=== PATIENT | male | born 1945 | race Caucasian/White ===

== ENCOUNTER 2021-08-28 14:14 | Inpatient (IN) | payer MEDICARE, OTHER ==
[~2021-08-28] VITALS: Ht 174 cm; Wt 72.2 kg
[2021-08-28] MEDS ORDERED: FUROSEMIDE 40MG/4ML VIAL (J1940) IV ONE (15:00)
[2021-08-28] MEDS ORDERED: NITROGLYCERIN 2% OINT 1 GM *U/D* PKT TOP ONE (15:00)
[2021-08-28 15:28] LABS: BASO # 0.1 10^3/uL (0.0-0.2); BASO % 0.8 % (0.0-1.0); EOS # 0.1 10^3/uL (0.0-0.5); EOS % 1.8 % (0.0-3.0); HEMATOCRIT 52.3 % (42.0-52.0); HEMOGLOBIN 15.5 g/dl (13.5-17.5); LYMPH # 1.5 10^3/uL (1.5-5.0); LYMPH % 20.4 % (24.0-44.0); MEAN CORPUSCULAR HEMOGLOBIN 27.7 pg (27.0-33.0); MEAN CORPUSCULAR HGB CONC 29.6 g/dl (32.0-36.5); MEAN CORPUSCULAR VOLUME 93.6 fl (80.0-96.0); MONO # 0.9 10^3/uL (0.0-0.8); MONO % 12.2 % (2.0-8.0); NEUTROPHILS # 4.7 10^3/uL (1.5-8.5); NEUTROPHILS % 63.7 % (36.0-66.0); PLATELET COUNT, AUTOMATED 246 10^3/uL (150-450); RED BLOOD COUNT 5.59 10^6/uL (4.30-6.10); WHITE BLOOD COUNT 7.4 10^3/uL (4.0-10.0)
--- NOTE | 2021-08-28 15:29 | REP ---
INDICATION: DYSPNEA/COUGH. COMPARISON: 01/30/2012. TECHNIQUE: Single portable AP view of the chest was performed. FINDINGS: There are chronic appearing interstitial fibrotic changes bilaterally. There is no definite acute infiltrate. Heart is upper limits of normal in size. The mediastinal silhouette is unchanged. IMPRESSION: Chronic changes with no definite acute infiltrate. <Electronically signed by Josh Bragg > 08/28/21 [id number]
[2021-08-28 15:40] LABS: INR 1.13
[2021-08-28 16:23] LABS: ALBUMIN 2.7 GM/DL (3.2-5.2); ALT/SGPT 23 U/L (12-78); BILIRUBIN,DIRECT 0.3 MG/DL (0.0-0.2); BILIRUBIN,TOTAL 0.6 MG/DL (0.2-1.0); BLOOD UREA NITROGEN 24 MG/DL (7-18); CALCIUM LEVEL 8.6 MG/DL (8.8-10.2); CARBON DIOXIDE LEVEL 33 MEQ/L (21-32); CHLORIDE LEVEL 103 MEQ/L (98-107); CK-MB VALUE MASS 4.4 NG/ML (<3.6); CPK CREATINE PHOSPHOKINASE 75 U/L (39-308); GLOMERULAR FILTRATION RATE > 60.0 (>42); GLUCOSE, FASTING 97 MG/DL (70-100); MB/CK RELATIVE INDEX 5.87 (< OR =4); NT-PRO BNP 3042 PG/ML (<450); POTASSIUM SERUM 4.5 MEQ/L (3.5-5.1); SODIUM LEVEL 140 MEQ/L (136-145); TOTAL PROTEIN 8.6 GM/DL (6.4-8.2); TROPONIN I 0.03 NG/ML (< 0.10)
--- NOTE | 2021-08-28 17:49 | HPEPDOC ---
[facility] Medical History & Physical Date of Admission Aug 28, 2021 Date of Service: Aug 28, 2021 History and Physical CHIEF COMPLAINT: " I was feeling short of breath" HISTORY OF PRESENT ILLNESS: 76-year-old male with a past medical history of exposure to agent orange, otherwise no reported history presented to emergency room department with complaints of shortness of breath. He drove his scooter himself to the emergen cy room. He reports for the last 5 years it has been getting short of breath but did not see medical attention due to taking care of his who reportedly has multiple myeloma. He attributed it to exposure of agent orange. Over the last 2 weeks he is feeling more short of breath, and today it had progressed to the point where he went to seek medical attention. He gets short of breath walking from one end of his house to the other, which was not present 2 weeks ago. He denied paroxysmal nocturnal dyspnea. He reports he has been sleeping in a recliner and is unsure if laying flat will exacerbate his symptoms. He uses no pillows. At this junction, he denies headaches, blurry vision, chest pain, abdominal pain, focal weakness, problems with urination or bowel movements. In the emergency room department he received Lasix and was placed on oxygen and reported improvement in his breathing. PAST MEDICAL HISTORY: No reported medical history PAST SURGICAL HISTORY: No prior to surgical history SOCIAL HISTORY: This is at the . Smokes approximately a pack per day. Denied drinking and use of recreational drug use. FAMILY HISTORY: Father had congestive heart failure ALLERGIES: Please see below. REVIEW OF SYSTEMS: 10 point review of system was negative except for what is noted in the HPI HOME MEDICATIONS: Please see below. PHYSICAL EXAMINATION: VITAL SIGNS: Please see below General: Lying in bed, no acute distress Head/Neck/Throat: Trachea midline, mucous membranes moist Eyes: Sclera anicteric, no erythema or discharge appreciated bilaterally Thorax: Normal respiratory effort on room air, lungs clear to auscultation bilaterally, no wheezes/rales/rhonchi Cardiovascular: Tachycardia, regular rhythm, normal S1, S2. Anisocoria - bilateral lower extremity edema, sacral edema, fluid wheeze appreciated, elevated JVD Abdomen: Bowel sounds present, soft/nontender/nondistended Genitourinary: No CVA tenderness, no Knott in place Musculoskeletal: Moving all extremities, no edema Skin: Warm, dry Neurologic: AAOx3, speech fluent and goal-directed, no focal deficits, grossly intact LABORATORY DATA: See below. IMAGING: Chest x-ray There are chronic appearing interstitial fibrotic changes bilaterally. There is no definite acute infiltrate. Heart is upper limits of normal in size. The mediastinal silhouette is unchanged. IMPRESSION: Chronic changes with no definite acute infiltrate. MICROBIOLOGY: Please see below. ASSESSMENT/PLAN: #Hypoxic respiratory failure -Suspect congestive heart failure (probable tachyarrhythmia cardiomyopathy); and with history of sedentary lifestyle, tachycardia and hypoxia would rule out PE. -Continue with Lasix, daily weights, I/O -Follow-up on CTA #Respiratory acidosis with compensation -Likely chronic, suspect AISHA/OHS. Mentating well, and lungs cta. -Monitor respiratory status. #A.flutter -EKG reviewed with Dr. Harrison. Recommends 0.5mcg of digoxin, and Lovenox at 75mg BID. #DVT prophylaxis -Offered by Lovenox Vital Signs Vital Signs Date Time Temp Pulse Resp B/P (MAP) Pulse Ox O2 Delivery O2 Flow Rate FiO2 08/28/21 15:28 177/103 08/28/21 14:37 124 22 Nasal Cannula 2.0 08/28/21 14:15 98.3 82 Laboratory Data Labs 24H Laboratory Tests 2 08/28/21 15:08: Immature Granulocyte % (Auto) 1.1, Neutrophils (%) (Auto) 63.7, Lymphocytes (%) (Auto) 20.4L, Monocytes (%) (Auto) 12.2H, Eosinophils (%) (Auto) 1.8, Basophils (%) (Auto) 0.8, Neutrophils # (Auto) 4.7, Lymphocytes # (Auto) 1.5, Monocytes # (Auto) 0.9H, Eosinophils # (Auto) 0.1, Basophils # (Auto) 0.1, Nucleated Red Blood Cells % (auto) 0.0, Prothrombin Time 15.0H, Prothromb Time International Ratio 1.13, Anion Gap 4L, Glomerular Filtration Rate > 60.0, Lactic Acid Level 1.8, Calcium Level 8.6L, Total Bilirubin 0.6, Direct Bilirubin 0.3H, Aspartate Amino Transf (AST/SGOT) 32, Alanine Aminotransferase (ALT/SGPT) 23, Alkaline Phosphatase 143H, Total Creatine Kinase 75, Creatine Kinase MB 4.4H, Creatine Kinase MB Relative Index 5.87H, Troponin I 0.03, PM-Owv-G-Type Natriuretic Peptide 3042H, Total Protein 8.6H, Albumin 2.7L, Albumin/Globulin Ratio 0.5, Thyroid Stimulating Hormone (TSH) 3.240 CBC/BMP Laboratory Tests 08/28/21 15:08 Microbiology Microbiology 08/28/21 Blood Culture, Received Pending 08/28/21 Respiratory Virus Panel (PCR) ([facility]) - Final, Complete 08/28/21 Blood Culture, Received Pending Home Medications Scheduled Ascorbic Acid (Vitamin C) 500 Mg Capsule, 500 MG PO DAILY Multivitamins (Thera M Plus Tablet) 1 Each Tablet, 1 TAB PO DAILY Zinc Sulfate (Zinc Sulfate) 220 Mg Capsule, 220 MG PO DAILY Allergies Coded Allergies: No Known Allergies (Unverified , 08/28/21) A-FIB/CHADSVASC A-FIB History Current/History of A-Fib/PAF?: Yes Current PO Anticoag Therapy: Yes CLAIRE VARELA M.D. Aug 28, 2021 17:49
[2021-08-28] MEDS ORDERED: VITA500C24 PO (17:50)
[2021-08-28] MEDS ORDERED: VITMTA PO (17:50)
[2021-08-28] MEDS ORDERED: ZINC220CA PO (17:50)
[2021-08-28] MEDS ORDERED: ISOVUE-370 76% 100ML VIAL As Ordered ONE (17:53)
[2021-08-28] MEDS ORDERED: HOME MED LIST COMPLETE! XX SCH (17:55)
[2021-08-28 18:41] LABS: ABG BASE EXCESS 3.8 (-2.0-2.0); ABG HCO3 32.7 MEQ/L (22.0-26.0); ABG STANDARD HCO3 27.8 MEQ/L (22.0-26.0); ABG TOTAL CO2 34.8 MEQ/L (23.0-31.0); ABG pH (ARTERIAL) 7.297 UNITS (7.350-7.450)
[2021-08-28 18:42] LABS: ABG PARTIAL PRESSURE CO2 68.4 mmHg (35.0-45.0)
[2021-08-28] MEDS ORDERED: DIGOXIN 0.25 MG TAB PO ONE (19:00)
--- NOTE | 2021-08-28 20:18 | REPVR ---
PROCEDURE INFORMATION: Exam: CTA Chest With Contrast Exam date and time: 08/28/2021 7:09 PM Age: 76 years old Clinical indication: Shortness of breath; Additional info: R/O pe TECHNIQUE: Imaging protocol: Computed tomographic angiography of the chest with contrast. 3D rendering (Not supervised by radiologist): MIP and/or 3D reconstructed images were created by the technologist. Radiation optimization: All CT scans at this facility use at least one of these dose optimization techniques: automated exposure control; mA and/or kV adjustment per patient size (includes targeted exams where dose is matched to clinical indication); or iterative reconstruction. Contrast material: ISOVUE 370; Contrast volume: 75 ml; Contrast route: INTRAVENOUS (IV); COMPARISON: CR PORTABLE CHEST X-RAY 08/28/2021 3:10 PM FINDINGS: Pulmonary arteries: There are no pulmonary emboli. Aorta: There is no aortic dissection or aneurysm. Lungs: Moderate to severe paraseptal and centrilobular emphysematous changes. Subpleural interstitial infiltrates both lung bases with small cystic changes suggesting interstitial lung disease. Pleural spaces: Unremarkable. No pneumothorax. No pleural effusion. Heart: There is mild atherosclerotic calcification of the coronary arteries. Lymph nodes: Multiple mediastinal lymph nodes likely postinflammatory. Adrenal glands: There is bilateral adrenal hyperplasia. Intraperitoneal space: There is a small amount of free intraperitoneal fluid present. Bones/joints: Degenerative changes both sternoclavicular and 1st rib manubrial joints. The spine demonstrates mild degenerative changes. Soft tissues: Unremarkable. Other findings: No segmental or lobar infiltrates. IMPRESSION: 1. Moderate to severe paraseptal and centrilobular emphysematous changes. 2. Subpleural interstitial infiltrates both lung bases with small cystic changes suggesting lower lobe interstitial lung disease. 3. There is no aortic dissection or aneurysm. 4. Multiple mediastinal lymph nodes likely postinflammatory. 5. There are no pulmonary emboli. 6. There is a small amount of free intraperitoneal fluid present. 7. There is bilateral adrenal hyperplasia. Electronically signed by: Kuldeep Han On 08/28/2021 20:17:37 PM
[2021-08-28 20:38] LABS: CHOLESTEROL RISK RATIO 2.866 (<5)
[2021-08-28 20:42] LABS: HEMOGLOBIN A1c 7.3 %
[2021-08-28 21:00] VITALS: BP 149/83
[2021-08-28] MEDS ORDERED: ENOXAPARIN 40MG/0.4ML SYRINGE (J1650 PER 10MG) SC SCH (21:00)
[2021-08-28] MEDS: ENOXAPARIN 80MG/0.8ML SYRINGE (J1650 PER 10MG) SC SCH (22:30)
[2021-08-29] VITALS (16 sets, daily range): BP systolic 91–137; BP diastolic 51–83
[2021-08-29] MEDS ORDERED: FUROSEMIDE 40MG/4ML VIAL (J1940) IV SCH
--- NOTE | 2021-08-29 01:10 | ECGEPIP ---
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
[2021-08-29 03:34] LABS: BLOOD UREA NITROGEN 20 MG/DL (7-18); CALCIUM LEVEL 8.4 MG/DL (8.8-10.2); CARBON DIOXIDE LEVEL 38 MEQ/L (21-32); CHLORIDE LEVEL 102 MEQ/L (98-107); CK-MB VALUE MASS 3.2 NG/ML (<3.6); CPK CREATINE PHOSPHOKINASE 54 U/L (39-308); CREATININE FOR GFR 1.13 MG/DL (0.70-1.30); GLOMERULAR FILTRATION RATE > 60.0 (>42); GLUCOSE, FASTING 93 MG/DL (70-100); MB/CK RELATIVE INDEX 5.93 (< OR =4); POTASSIUM SERUM 4.2 MEQ/L (3.5-5.1); SODIUM LEVEL 141 MEQ/L (136-145); TROPONIN I 0.05 NG/ML (< 0.10)
[2021-08-29 05:51] LABS: ABG BASE EXCESS 5.2 (-2.0-2.0); ABG HCO3 34.3 MEQ/L (22.0-26.0); ABG O2 SATURATION 94.8 % (95.0-99.0); ABG PARTIAL PRESSURE O2 80.3 mmHg (75.0-100.0); ABG STANDARD HCO3 29.1 MEQ/L (22.0-26.0); ABG TOTAL CO2 36.5 MEQ/L (23.0-31.0); ABG pH (ARTERIAL) 7.301 UNITS (7.350-7.450)
[2021-08-29 05:53] LABS: ABG PARTIAL PRESSURE CO2 71.1 mmHg (35.0-45.0)
[2021-08-29 06:03] LABS: HEMATOCRIT 47.2 % (42.0-52.0); HEMOGLOBIN 14.1 g/dl (13.5-17.5); MEAN CORPUSCULAR HEMOGLOBIN 27.8 pg (27.0-33.0); MEAN CORPUSCULAR HGB CONC 29.9 g/dl (32.0-36.5); MEAN CORPUSCULAR VOLUME 93.1 fl (80.0-96.0); PLATELET COUNT, AUTOMATED 235 10^3/uL (150-450); RED BLOOD COUNT 5.07 10^6/uL (4.30-6.10); WHITE BLOOD COUNT 8.1 10^3/uL (4.0-10.0)
[2021-08-29 06:16] LABS: BLOOD UREA NITROGEN 19 MG/DL (7-18); CALCIUM LEVEL 8.4 MG/DL (8.8-10.2); CARBON DIOXIDE LEVEL 37 MEQ/L (21-32); CHLORIDE LEVEL 103 MEQ/L (98-107); CREATININE FOR GFR 1.12 MG/DL (0.70-1.30); GLOMERULAR FILTRATION RATE > 60.0 (>42); GLUCOSE, FASTING 80 MG/DL (70-100); POTASSIUM SERUM 4.1 MEQ/L (3.5-5.1); SODIUM LEVEL 142 MEQ/L (136-145)
[2021-08-29] MEDS ORDERED: diphenhydrAMINE 50MG/ML VIAL (J1200) IV ONE (06:40)
[2021-08-29] MEDS ORDERED: ACETAMINOPHEN 650 MG SUPP PR PRN (06:40)
[2021-08-29] MEDS: DIGOXIN 0.25 MG TAB PO SCH (07:58)
[2021-08-29] MEDS: ENOXAPARIN 80MG/0.8ML SYRINGE (J1650 PER 10MG) SC SCH ×2 (07:58→20:14)
[2021-08-29] MEDS: methylPREDNISolone 40MG 1ML VIAL IV SCH ×3 (07:58→20:14)
[2021-08-29] MEDS: PIPERACILLIN/TAZOBACTAM SOD 4.5 GM in D5W MINI-BAG PLUS 50 ML IV SCH ×3 (07:59→20:14)
[2021-08-29] MEDS ORDERED: LEVALBUTEROL HFA 45MCG/ACT 15 GM INHALER INH SCH (08:00)
[2021-08-29] MEDS ORDERED: IPRATROPIUM HFA INHALER 12.9 GRAMS (ATROVENT HFA) INH SCH (08:00)
[2021-08-29] MEDS ORDERED: LEVALBUTEROL 1.25 MG/0.5 ML CONCENTRATE NEB INH SCH (08:00)
[2021-08-29 08:17] LABS: TROPONIN I 0.05 NG/ML (< 0.10)
[2021-08-29] MEDS: VANCOMYCIN HCL 1,000 MG, VIAL MATE ADAPTER 1 EACH in NS 250 ML IV SCH ×2 (09:34→17:10)
[2021-08-29] MEDS ORDERED: VANCOMYCIN HCL 1,000 MG, VIAL MATE ADAPTER 1 EACH in NS 250 ML IV ONE (10:00)
[2021-08-29 10:39] LABS: ABG O2 SATURATION 86.1 % (95.0-99.0)
[2021-08-29 10:42] LABS: ABG BASE EXCESS 5.6 (-2.0-2.0); ABG PARTIAL PRESSURE O2 54.8 mmHg (75.0-100.0); ABG STANDARD HCO3 29.2 MEQ/L (22.0-26.0); ABG TOTAL CO2 37.3 MEQ/L (23.0-31.0)
[2021-08-29 10:44] LABS: ABG PARTIAL PRESSURE CO2 74.4 mmHg (35.0-45.0)
[2021-08-29] MEDS ORDERED: ALBUTEROL SULFATE 2.5 MG/0.5 ML INH NEB SOLN NEB PRN (11:00)
--- NOTE | 2021-08-29 14:46 | CR.PDOC ---
General Date of Consultation: Aug 29, 2021 Referring Provider: Halley Nunn MD Attending Physician: Halley Nunn MD Consultation REASON FOR CONSULTATION/CHIEF COMPLAINT: shortness of breath. HISTORY OF PRESENT ILLNESS: This is a 76 yo gentleman with history of at least 40 pack year smoking history, possible agent orange exposure presented to the ER with complaint of shortness of breath. He states that his shortness of breath has been there for the last 5 years. He has not seen a doctor for many years. However, his symptoms progressively got worsened in the last 2 weeks. Associated symptoms include palpitation and LE swelling. Upon admission to the hospital, he was found to have Aflutter with elevated proBNP. He was give diuretic therapy with digoxin and Lovenox theraputic dose. ABG showed mild derangement of partially compensated respiratory acidosis. CT chest showed no evidence of PE but extensive centrilobular emphysema predominately in the apex. He was put on BiPAP last night but didn't tolerate. Now he's on Vapotherm. Pulmonary was consulted for further recommendation. ALLERGIES: Please see below. HOME MEDICATIONS: Please see below. PAST MEDICAL HISTORY: -Chronic tobacco abuse. PAST SURGICAL HISTORY: No prior to surgical history SOCIAL HISTORY: Lives with . Smokes approximately a pack per day for total of 40 years. Denied drinking and use of recreational drug use. FAMILY HISTORY: Father had congestive heart failure REVIEW OF SYSTEMS: CONSTITUTIONAL: Denies of fever, chills, weight change, appetite change, night sweats, weight loss. HEENT: Denies of cough or sinusitis. CARDIOVASCULAR: Admits to palpitation and orthopnea, Denies chest pain RESPIRATORY: Admits to shortness of breath and chronic productive cough, denies hemoptysis or wheezing. GENITOURINARY: Denies dysuria. MUSCULOSKELETAL: Denies joint swelling or redness. GASTROINTESTINAL: Denies abdominal pain, nausea, vomiting, diarrhea. SKIN: Denies rash. NEUROLOGICAL: Denies slurred speech, focal weakness. PSYCHIATRIC: Denies depression ENDOCRINE: Denies weigh t changes. HEMATOLOGIC/LYMPHATIC: Denies bleeding. ALLERGIC/IMMUNOLOGIC: Denies allergy. PHYSICAL EXAMINATION: VITAL SIGNS: Please see below. GENERAL APPEARANCE: Chronically ill appearing, alerted and oriented x 3, lethargic but easily arousable. HEENT: JVD, no cervical adenopathy RESPIRATORY: very distant breath sounds, couldn't hear wheezing or crackles CARDIOVASCULAR: normal S1 S2 with early systolic murmur heard best right sternal boarder. ABDOMEN: soft, not tender, active bowel sounds. EXTREMITIES: bilateral pitting edema of the LE up to the level of the knees. NEUROLOGICAL: non-focal PSYCHIATRIC: cannot be assessed LABORATORY DATA: Please see below. ASSESSMENT/PLAN: This is a 76 yo gentleman with history of at least 40 pack year smoking history, possible agent orange exposure presented to the ER with complaint of shortness of breath. #Hypoxic and hypercapnic respiratory failure #Exacerbation of heart failure #Aflutter #Centrilobar emphysema without exacerbation #Suspected OHS/AISHA #Partially compensated respiratory acidosis Recommendations: -Patient cannot tolerate with BiPAP mask. Currently, he's on vapotherm. He's a chronic CO2 retainer as evident by elevated serum Bicarb. Predominate driving factor is likely COPD possible component of OHS. -Recommend BiPAP QHS and when he sleeps. -Recommend Albuterol PRN inhaler and Spiriva for his COPD regime. -He will need to follow up in pulmonary clinic for PFT and official sleep study. -Ongoing management for HF and Aflutter by primary. Vital Signs/I&O Vital Signs Date Time Temp Pulse Resp B/P (MAP) Pulse Ox O2 Delivery O2 Flow Rate FiO2 08/29/21 13:00 116 91/52 (65) 97 HVNI-Vapotherm 20.0 80 08/29/21 12:00 99.6 19 I&O- Last 24 Hours up to 6 AM 08/29/21 06:00 Intake Total 50.0 ml Output Total 2175 ml Balance -2125.0 ml Laboratory Data Labs 24H Laboratory Tests 2 08/28/21 15:08: Immature Granulocyte % (Auto) 1.1, Neutrophils (%) (Auto) 63.7, Lymphocytes (%) (Auto) 20.4L, Monocytes (%) (Auto) 12.2H, Eosinophils (%) (Auto) 1.8, Basophils (%) (Auto) 0.8, Neutrophils # (Auto) 4.7, Lymphocytes # (Auto) 1.5, Monocytes # (Auto) 0.9H, Eosinophils # (Auto) 0.1, Basophils # (Auto) 0.1, Nucleated Red Blood Cells % (auto) 0.0, Prothrombin Time 15.0H, Prothromb Time International Ratio 1.13, Anion Gap 4L, Glomerular Filtration Rate > 60.0, Lactic Acid Level 1.8, Calcium Level 8.6L, Total Bilirubin 0.6, Direct Bilirubin 0.3H, Aspartate Amino Transf (AST/SGOT) 32, Alanine Aminotransferase (ALT/SGPT) 23, Alkaline Phosphatase 143H, Total Creatine Kinase 75, Creatine Kinase MB 4.4H, Creatine Kinase MB Relative Index 5.87H, Troponin I 0.03, HS-Pqb-K-Type Natriuretic Peptide 3042H, Total Protein 8.6H, Albumin 2.7L, Albumin/Globulin Ratio 0.5, Thyroid Stimulating Hormone (TSH) 3.240 08/28/21 18:21: Urine Color STRAW, Urine Appearance CLEAR, Urine pH 5.0, Urine Specific [place] 1.005, Urine Protein NEGATIVE, Urine Glucose (UA) NEGATIVE, Urine Ketones NEGATIVE, Urine Blood 1+H, Urine Nitrite NEGATIVE, Urine Bilirubin NEGATIVE, Urine Urobilinogen 0.2, Urine Leukocyte Esterase NEGATIVE, Urine WBC (Auto) 0, Urine RBC (Auto) 2, Urine Hyaline Casts (Auto) 0, Urine Bacteria (Auto) NEGATIVE, Urine Squamous Epithelial Cells 0, Urine Sperm (Auto) 08/28/21 18:30: Blood Gas Bicarbonate Standard 27.8H, Arterial Blood pH 7.297L, Arterial Blood Partial Pressure CO2 68.4*H, Arterial Blood Partial Pressure O2 118.0H, Arterial Blood Total CO2 34.8H, Arterial Blood HCO3 32.7H, Arterial Blood Base Excess 3.8H, Arterial Blood Oxygen Saturation 98.0 08/28/21 19:59: Estimated Mean Plasma Glucose 163H, Hemoglobin A1c 7.3, Triglycerides Level 82, Total Cholesterol 129, LDL Cholesterol 68, Non-HDL Cholesterol (LDL + VLDL) 84, Total HDL Cholesterol 45, Cholesterol/HDL Ratio 2.866 08/28/21 22:11: Troponin I 0.02# 08/29/21 02:11: Troponin I 0.05#, Anion Gap 1L, Glomerular Filtration Rate > 60.0, Calcium Level 8.4L, Magnesium Level 2.0, Total Creatine Kinase 54, Creatine Kinase MB 3.2, Creatine Kinase MB Relative Index 5.93H, Thyroid Stimulating Hormone (TSH) 1.390 08/29/21 05:36: Blood Gas Bicarbonate Standard 29.1H, Arterial Blood pH 7.301L, Arterial Blood P artial Pressure CO2 71.1*H, Arterial Blood Partial Pressure O2 80.3, Arterial Blood Total CO2 36.5H, Arterial Blood HCO3 34.3H, Arterial Blood Base Excess 5.2H, Arterial Blood Oxygen Saturation 94.8L 08/29/21 05:44: Procalcitonin <0.05 08/29/21 05:46: Nucleated Red Blood Cells % (auto) 0.0, Anion Gap 2L, Glomerular Filtration Rate > 60.0, Calcium Level 8.4L, Phosphorus Level 4.0, Magnesium Level 2.0, Troponin I 0.05 08/29/21 09:19: Blood Gas Bicarbonate Standard 29.2H, Arterial Blood pH 7.290L, Arterial Blood Partial Pressure CO2 74.4*H, Arterial Blood Partial Pressure O2 54.8L, Arterial Blood Total CO2 37.3H, Arterial Blood HCO3 35.0H, Arterial Blood Base Excess 5.6H, Arterial Blood Oxygen Saturation 86.1L CBC/BMP Laboratory Tests 08/28/21 15:08 08/29/21 02:11 08/29/21 05:46 Microbiology Microbiology 08/28/21 Blood Culture, Received Pending 08/28/21 Respiratory Virus Panel (PCR) ([facility]VIA) - Final, Complete 08/28/21 Blood Culture, Received Pending Allergies Coded Allergies: No Known Allergies (Unverified , 08/28/21) Home Medications Scheduled Ascorbic Acid (Vitamin C) 500 Mg Capsule, 500 MG PO DAILY, (Reported) Multivitamins (Thera M Plus Tablet) 1 Each Tablet, 1 TAB PO DAILY, (Reported) Zinc Sulfate (Zinc Sulfate) 220 Mg Capsule, 220 MG PO DAILY, (Reported) DOT KAPLAN MD Aug 29, 2021 14:46
--- NOTE | 2021-08-29 19:35 | ECHO ---
ECHOCARDIOGRAM DATE OF PROCEDURE: 08/29/2021 Age: 76 years Gender: Male Height: 68 inches Weight: 211 pounds Body Surface Area: 2.1 m2. Inpatient: PCU, room 3217 REFERRING PHYSICIAN: Enzo Arzola MD INDICATION: Dyspnea. MEASUREMENTS: 2D Measurements: RV 5.0 cm LV 4.7 cm Septum 1.2 cm Posterior wall 1.2 cm Aortic Root 3.7 cm Ascending aorta 3.4 cm LA 4.4 cm LVEF 35-40% Doppler Measurements: AV 1.21 m/s LVOT 0.78 m/s LVOT diameter 2.0 cm MV-E 115 Early mitral deceleration time 88 ms E prime medial 5.8, E prime lateral 9.1 Average E/E prime ratio 15.4/PCWP - 21 mmHg PV 0.62 m/s Pulmonary artery acceleration time 73 ms RVSP, unfortunately technically difficult PASP, at least 48 mmHg IVC 2.5 cm COMMENTS: Underlying atrial flutter with somewhat rapid ventricular response averaging 117 BPM. No intraventricular conduction disturbance. M-Mode and Two Dimensional Echocardiography was performed with pulse, continuous wave, color flow, and tissue Doppler studies. Borderline left ventricular hypertrophy with normal left ventricular cavity size. Septal wall motion abnormality related to right ventricular pressure overload. Other left ventricular wall segments appeared to move normally or be slightly hypokinetic. At least moderate impairment of global resting systolic function. Moderately dilated left atrium with at least mildly elevated estimated mean left atrial pressure. Moderately dilated right heart chambers with right ventricular free wall hypokinesis and likely severe pulmonary hypertension. At least [id number] dilated inferior vena cava with absent respiratory collapse in keeping with the central venous pressure in excess of 20 mmHg - right heart failure. Normal aortic diameters. Three equal sized aortic cusps with adequate cusp separation, but premature cusp closure in keeping with reduced forward stroke volume. Mild degenerative changes of the mitral valvular apparatus with "low flow" appearance to leaflet excursion. No posterior systolic buckling and no more than [id number] mild insufficiency. Normal-appearing tricuspid valve with insufficiency, but we were unable to align continuous wave Doppler appropriately to measure the optimal transvalvular gradient to more accurately define his right ventricular systolic pressure. No apparent intracardiac mass or pericardial effusion. MTDD
--- NOTE | 2021-08-29 21:43 | IPNPDOC ---
Subjective Date Seen The patient was seen on 08/29/21. Subjective Chief Complaint/HPI Patient reports that his breathing is better today. However he is very uncomfortable with the bipap mask and keeps pulling it and moving it. His ABG is about the same as yesterday. He has excellent response to lasix . He did develop acute urinary retention > 900 ml needing catheterization. Objective Physical Examination General Exam: Positive: Alert, Cooperative, No Acute Distress Eye Exam: Positive: PERRLA, Conjunctiva & lids normal, EOMI; Negative: Sclera icteric ENT Exam: Positive: Atraumatic, Mucous membr. moist/pink, Pharynx Normal Neck Exam: Positive: Supple, JVD; Negative: thyromegaly Chest Exam: Positive: Other (bilateral crackles. ); Negative: Rales, Rhonchi, Wheezing Heart Exam: Positive: Tachycardic, Regular Rhythm, Normal S1, Normal S2; Negative: Murmurs, Rubs Abdomen Exam: Positive: Normal bowel sounds, Soft, Hepatospenomegaly; Negative: Tenderness Male Exam: Positive: Normal Genital Exam Extremity Exam: Positive: Edema (up to the thighs. ); Negative: Clubbing, Cyanosis Psych Exam: Positive: Oriented x 3 Assessment /Plan Assessment 76-year-old male with a past medical history of exposure to agent orange, otherwise no reported history presented to emergency room department with complaints of shortness of breath. He drove his scooter himself to the emergency room. He reports for the last 5 years he has been getting short of breath but did not see medical attention due to taking care of his who reportedly has multiple myeloma. He attributed it to exposure to agent orange. Over the last 2 weeks he was feeling more short of breath, and on tommy day of admission it had progressed to the point where he was short of breath walking from one end of his house to the other, which was not present 2 weeks ago. This made him come to the ED. On presentation to the ED he was saturating at 82% in room air . He was also noted to be in a flutter with RVR and found to have features of Fluid overload. He was admitted for CHF exacerbation with acute hypoxic and hypercarbic respiratory failure. Acute on Chronic Hypoxic and hypercarbic respiratory failure Looks like patient is a chronic CO2 retainer , has partially compensated respiratory acidosis now with acute worsening due to Acute CHF. Chronic respiratory failure likely due to underlying AISHA / obesity hyperventilation + Emphysema+ possible ILD. Was on BIPAP briefly now on vapotherm daily weights, I/O Continue BIPAP at Bedtime. avoid sedating medications. Appreciate pulmonary consultation. Partially Compensated Respiratory acidosis Likely chronic, suspect AISHA/OHS. Mentating well. Will need outpatient pulmonology referral for sleep study, PFTs Systolic CHF exacerbation with right heart failure and severe pulmonary Hypertension Echo shows EF of 35% to 40% Could be related to tachycardia induced myopathy from A flutter received several doses of lasix with negative 3 L in less than 24 hours will hold lasix today Atrial flutter with RVR likely precipitated by respiratory issues Continue digoxin and therapeutic lovenox. COPD CTA shows Centrilobar emphysema Not sure if there is some exacerbation due to CHF will give steroids and see if there is any improvement in his respiratory status. will give albuterol prn and spiriva. Acute urinary retention Needed straight cath Plan/VTE VTE Prophylaxis Ordered?: Yes VS, I&O, 24H, [facility] Vital Signs/I&O Vital Signs Date Time Temp Pulse Resp B/P (MAP) Pulse Ox O2 Delivery O2 Flow Rate FiO2 08/29/21 20:00 98.2 110 20 112/70 (84) 94 HVNI-Vapotherm 20.0 70 I&O- Last 24 Hours up to 6 AM 08/29/21 07:00 Intake Total 50.0 ml Output Total 2175 ml Balance -2125.0 ml Laboratory Data 24H LABS Laboratory Tests 2 08/28/21 22:11: Troponin I 0.02# 08/29/21 02:11: Troponin I 0.05#, Anion Gap 1L, Glomerular Filtration Rate > 60.0, Calcium Level 8.4L, Magnesium Level 2.0, Total Creatine Kinase 54, Creatine Kinase MB 3.2, Creatine Kinase MB Relative Index 5.93H, Thyroid Stimulating Hormone (TSH) 1.390 08/29/21 05:36: Blood Gas Bicarbonate Standard 29.1H, Arterial Blood pH 7.301L, Arterial Blood Partial Pressure CO2 71.1*H, Arterial Blood Partial Pressure O2 80.3, Arterial Blood Total CO2 36.5H, Arterial Blood HCO3 34.3H, Arterial Blood Base Excess 5.2 H, Arterial Blood Oxygen Saturation 94.8L 08/29/21 05:44: Procalcitonin <0.05 08/29/21 05:46: Nucleated Red Blood Cells % (auto) 0.0, Anion Gap 2L, Glomerular Filtration Rate > 60.0, Calcium Level 8.4L, Phosphorus Level 4.0, Magnesium Level 2.0, Troponin I 0.05 08/29/21 09:19: Blood Gas Bicarbonate Standard 29.2H, Arterial Blood pH 7.290L, Arterial Blood Partial Pressure CO2 74.4*H, Arterial Blood Partial Pressure O2 54.8L, Arterial Blood Total CO2 37.3H, Arterial Blood HCO3 35.0H, Arterial Blood Base Excess 5.6H, Arterial Blood Oxygen Saturation 86.1L CBC/BMP Laboratory Tests 08/29/21 02:11 08/29/21 05:46 Microbiology Microbiology 08/28/21 Blood Culture - Preliminary, Resulted No growth after 24 hours . All specim... 08/28/21 Respiratory Virus Panel (PCR) (ELVIA) - Final, Complete 08/28/21 Blood Culture - Preliminary, Resulted No growth after 24 hours . All specim... Halley Nunn MD Aug 29, 2021 21:43
[2021-08-30] VITALS (7 sets, daily range): BP systolic 82–122; BP diastolic 54–72
[2021-08-30] MEDS: methylPREDNISolone 40MG 1ML VIAL IV SCH ×4 (01:18→20:17)
[2021-08-30] MEDS: VANCOMYCIN HCL 1,000 MG, VIAL MATE ADAPTER 1 EACH in NS 250 ML IV SCH ×2 (01:18→10:02)
[2021-08-30] MEDS: PIPERACILLIN/TAZOBACTAM SOD 4.5 GM in D5W MINI-BAG PLUS 50 ML IV SCH ×4 (02:10→20:17)
[2021-08-30 06:56] LABS: ABG BASE EXCESS 5.1 (-2.0-2.0); ABG HCO3 37.5 MEQ/L (22.0-26.0); ABG O2 SATURATION 98.4 % (95.0-99.0); ABG PARTIAL PRESSURE O2 138.1 mmHg (75.0-100.0); ABG TOTAL CO2 40.6 MEQ/L (23.0-31.0)
[2021-08-30 06:59] LABS: ABG pH (ARTERIAL) 7.185 UNITS (7.350-7.450)
[2021-08-30 07:00] LABS: ABG PARTIAL PRESSURE CO2 101.5 mmHg (35.0-45.0)
--- NOTE | 2021-08-30 07:04 | ECGEPIP ---
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
[2021-08-30] MEDS: TIOTROPIUM INHALER/CAPSULE (SPIRIVA) INH SCH (07:24)
[2021-08-30 07:50] LABS: ABG BASE EXCESS 3.2 (-2.0-2.0); ABG HCO3 32.5 MEQ/L (22.0-26.0); ABG O2 SATURATION 85.4 % (95.0-99.0); ABG PARTIAL PRESSURE O2 53.1 mmHg (75.0-100.0); ABG STANDARD HCO3 26.9 MEQ/L (22.0-26.0); ABG TOTAL CO2 34.7 MEQ/L (23.0-31.0); ABG pH (ARTERIAL) 7.275 UNITS (7.350-7.450)
[2021-08-30 07:58] LABS: ABG PARTIAL PRESSURE CO2 71.5 mmHg (35.0-45.0)
[2021-08-30] MEDS: ENOXAPARIN 80MG/0.8ML SYRINGE (J1650 PER 10MG) SC SCH ×2 (08:38→20:17)
[2021-08-30] MEDS: DIGOXIN 0.25 MG TAB PO SCH (08:38)
[2021-08-30 09:19] LABS: BASO % 0.3 % (0.0-1.0); HEMATOCRIT 50.5 % (42.0-52.0); HEMOGLOBIN 14.5 g/dl (13.5-17.5); LYMPH # 0.8 10^3/uL (1.5-5.0); LYMPH % 12.1 % (24.0-44.0); MEAN CORPUSCULAR HGB CONC 28.7 g/dl (32.0-36.5); MEAN CORPUSCULAR VOLUME 97.7 fl (80.0-96.0); MONO # 0.5 10^3/uL (0.0-0.8); MONO % 7.4 % (2.0-8.0); NEUTROPHILS # 5.4 10^3/uL (1.5-8.5); NEUTROPHILS % 79.3 % (36.0-66.0); PLATELET COUNT, AUTOMATED 220 10^3/uL (150-450); RED BLOOD COUNT 5.17 10^6/uL (4.30-6.10); WHITE BLOOD COUNT 6.8 10^3/uL (4.0-10.0)
[2021-08-30 09:49] LABS: CALCIUM LEVEL 9.1 MG/DL (8.8-10.2); CREATININE FOR GFR 1.32 MG/DL (0.70-1.30); GLOMERULAR FILTRATION RATE 56.3 (>42)
--- NOTE | 2021-08-30 11:22 | IPNPDOC ---
Subjective Date Seen The patient was seen on 08/30/21. Subjective Chief Complaint/HPI Patient was on Vapotherm all night. This morning he was very lethargic. ABG showed worsening of his respiratory acidosis with a pH of 7.18 and PCO2 of 101. Patient was forcibly woken up and was kept awake repeat ABG after 45 minutes showed improvement with a pH of 7. 27 and PCO2 of 71. This is likely due to severe sleep apnea so his blood gas is bed in the morning and better during the day when he is awake. When I spoke to him at bedside he was alert oriented and cooperative. I did put him back on BiPAP support. Plan is to use BiPAP during naps and at night. Objective Physical Examination General Exam: Positive: Alert, Cooperative, No Acute Distress Eye Exam: Positive: PERRLA, Conjunctiva & lids normal, EOMI; Negative: Sclera icteric ENT Exam: Positive: Atraumatic, Mucous membr. moist/pink, Pharynx Normal Neck Exam: Positive: Supple, JVD; Negative: thyromegaly Chest Exam: Positive: Other (bilateral crackles. ); Negative: Rales, Rhonchi, Wheezing Heart Exam: Positive: Tachycardic, Regular Rhythm, Normal S1, Normal S2; Negative: Murmurs, Rubs Abdomen Exam: Positive: Normal bowel sounds, Soft, Hepatospenomegaly; Negative: Tenderness Male Exam: Positive: Normal Genital Exam Extremity Exam: Positive: Edema (up to the thighs. ); Negative: Clubbing, Cyanosis Psych Exam: Positive: Oriented x 3 Assessment /Plan Assessment 76-year-old male with a past medical history of exposure to agent orange, otherwise no reported history presented to emergency room department with complaints of shortness of breath. He drove his scooter himself to the emergency room. He reports for the last 5 years he has been getting short of breath but did not see medical attention due to taking care of his who reportedly has multiple myeloma. He attributed it to exposure to agent orange. Over the last 2 weeks he was feeling more short of breath, and on tommy day of admission it had progressed to the point where he was short of breath walking from one end of his house to the other, which was not present 2 weeks ago. This made him come to the ED. On presentation to the ED he was saturating at 82% in room air . He was also noted to be in a flutter with RVR and found to have features of Fluid overload. He was admitted for CHF exacerbation with acute hypoxic and hypercarbic respiratory failure. Acute on Chronic Hypoxic and hypercarbic respiratory failure Looks like patient is a chronic CO2 retainer , has partially compensated respir atory acidosis now with acute worsening due to Acute CHF. Chronic respiratory failure likely due to underlying AISHA / obesity hyperventilation + Emphysema+ possible ILD. Would keep his oxygen saturations between 86% to 88% to help with his respiratory drive. daily weights, I/O Continue BIPAP at Bedtime. avoid sedating medications. Appreciate pulmonary consultation. Partially Compensated Respiratory acidosis Likely chronic, suspect AISHA/OHS. Mentating well. Will need outpatient pulmonology referral for sleep study, PFTs Systolic CHF exacerbation with right heart failure and severe pulmonary Hypertension Echo shows EF of 35% to 40% Could be related to tachycardia induced myopathy from A flutter received several doses of lasix with negative 5 L in less than 48 hours will hold lasix Atrial flutter with RVR likely precipitated by respiratory issues Continue digoxin and therapeutic lovenox. COPD CTA shows Centrilobar emphysema Not sure if there is some exacerbation due to CHF will give steroids and see if there is any improvement in his respiratory status. will give albuterol prn and spiriva. Acute urinary retention Needed straight cath Plan/VTE VTE Prophylaxis Ordered?: Yes VS, I&O, 24H, Fishbone Vital Signs/I&O Vital Signs Date Time Temp Pulse Resp B/P (MAP) Pulse Ox O2 Delivery O2 Flow Rate FiO2 08/30/21 08:38 112 08/30/21 08:00 98.8 24 100/55 (70) 89 HVNI-Vapotherm 20.0 60 I&O- Last 24 Hours up to 6 AM 08/30/21 06:00 Intake Total 635 ml Output Total 3650 ml Balance -3015 ml Laboratory Data 24H LABS Laboratory Tests 2 08/29/21 23:49: Vancomycin Level Trough 9.8L 08/30/21 06:50: Blood Gas Bicarbonate Standard 29.0H, Arterial Blood pH 7.185*L, Arterial Blood Partial Pressure CO2 101.5*H, Arterial Blood Partial Pressure O2 138.1H, A rterial Blood Total CO2 40.6H, Arterial Blood HCO3 37.5H, Arterial Blood Base Excess 5.1H, Arterial Blood Oxygen Saturation 98.4 08/30/21 07:39: Blood Gas Bicarbonate Standard 26.9H, Arterial Blood pH 7.275L, Arterial Blood Partial Pressure CO2 71.5*H, Arterial Blood Partial Pressure O2 53.1L, Arterial Blood Total CO2 34.7H, Arterial Blood HCO3 32.5H, Arterial Blood Base Excess 3.2H, Arterial Blood Oxygen Saturation 85.4L 08/30/21 09:06: Immature Granulocyte % (Auto) 0.9, Neutrophils (%) (Auto) 79.3H, Lymphocytes (%) (Auto) 12.1L, Monocytes (%) (Auto) 7.4, Eosinophils (%) (Auto) 0.0, Basophils (%) (Auto) 0.3, Neutrophils # (Auto) 5.4, Lymphocytes # (Auto) 0.8L, Monocytes # (Auto) 0.5, Eosinophils # (Auto) 0.0, Basophils # (Auto) 0.0, Nucleated Red Blood Cells % (auto) 0.0, Anion Gap 2L, Glomerular Filtration Rate 56.3, Calcium Level 9.1 CBC/BMP Laboratory Tests 08/30/21 09:06 Microbiology Microbiology 08/28/21 Blood Culture - Preliminary, Resulted No growth after 24 hours . All specim... 08/28/21 Respiratory Virus Panel (PCR) ([facility]) - Final, Complete 08/28/21 Blood Culture - Preliminary, Resulted No growth after 24 hours . All specim... Halley Nunn MD Aug 30, 2021 11:22
--- NOTE | 2021-08-30 13:34 | IPNPDOC ---
Subjective Date Seen The patient was seen on 08/30/21. Subjective Chief Complaint/HPI Patient remains short of breath and tired. Otherwise he denies of fever, chills, chest pain or palpitation. Constitutional: Denies: Chills, Fever Eyes: Denies: Pain ENT: Denies: Head Aches Skin: Denies: Rash Pulmonary: Reports: Dyspnea; Denies: Cough, Pleuritic Chest Pain Cardiovascular: Reports: Edema; Denies: Chest Pain, Palpitations, Orthopnea Gastrointestinal: Denies: Nausea, Vomiting Neurological: Denies: Weakness, Numbness Objective Physical Examination General Exam: Positive: Alert, Cooperative, No Acute Distress Eye Exam: Positive: PERRLA, Conjunctiva & lids normal, EOMI; Negative: Sclera icteric ENT Exam: Positive: Atraumatic, Mucous membr. moist/pink, Pharynx Normal Neck Exam: Positive: Supple, JVD; Negative: thyromegaly Chest Exam: Positive: Other (bilateral crackles. ); Negative: Rales, Rhonchi, Wheezing Heart Exam: Positive: Tachycardic, Regular Rhythm, Normal S1, Normal S2; Negative: Murmurs, Rubs Abdomen Exam: Positive: Normal bowel sounds, Soft, Hepatospenomegaly; Negative: Tenderness Male Exam: Positive: Normal Genital Exam Extremity Exam: Positive: Edema (up to the thighs. ); Negative: Clubbing, Cyanosis Psych Exam: Positive: Oriented x 3 Assessment /Plan Assessment This is a 76 yo gentleman with history of at least 40 pack year smoking history, possible agent orange exposure presented to the ER with complaint of shortness of breath. 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 This is likely driven by his underlying obstructive lung disease/COPD/emphysem. However, there may be a component of OHS or AISHA. Arterial blood gas done this morning show decompensated respiratory acidosis which improved spontaneously without any intervention when he wakes up. -Continue with supplemental oxygen to target oxygen saturation above 88%. -Recommend quickly tapering corticosteroids. Continue with albuterol as needed and Spiriva for his underlying COPD. -He will need pulmonary function test and sleep study once he is discharged from the hospital. -Recommend keeping him on Lasix 20 mg p.o. daily VS, I&O, 24H, Fishbone Vital Signs/I&O Vital Signs Date Time Temp Pulse Resp B/P (MAP) Pulse Ox O2 Delivery O2 Flow Rate FiO2 08/30/21 12:52 94/55 (68) 08/30/21 12:00 97.3 112 20 89 HVNI-Vapotherm 40.0 80 I&O- Last 24 Hours up to 6 AM 08/30/21 06:00 Intake Total 635 ml Output Total 3650 ml Balance -3015 ml Laboratory Data 24H LABS Laboratory Tests 2 08/29/21 23:49: Vancomycin Level Trough 9.8L 08/30/21 06:50: Blood Gas Bicarbonate Standard 29.0H, Arterial Blood pH 7.185*L, Arterial Blood Partial Pressure CO2 101.5*H, Arterial Blood Partial Pressure O2 138.1H, Arterial Blood Total CO2 40.6H, Arterial Blood HCO3 37.5H, Arterial Blood Base Excess 5.1H, Arterial Blood Oxygen Saturation 98.4 08/30/21 07:39: Blood Gas Bicarbonate Standard 26.9H, Arterial Blood pH 7.275L, Arterial Blood Partial Pressure CO2 71.5*H, Arterial Blood Partial Pressure O2 53.1L, Arterial Blood Total CO2 34.7H, Arterial Blood HCO3 32.5H, Arterial Blood Base Excess 3.2H, Arterial Blood Oxygen Saturation 85.4L 08/30/21 09:06: Immature Granulocyte % (Auto) 0.9, Neutrophils (%) (Auto) 79.3H, Lymphocytes (%) (Auto) 12.1L, Monocytes (%) (Auto) 7.4, Eosinophils (%) (Auto) 0.0, Basophils (%) (Auto) 0.3, Neutrophils # (Auto) 5.4, Lymphocytes # (Auto) 0.8L, Monocytes # (Auto) 0.5, Eosinophils # (Auto) 0.0, Basophils # (Auto) 0.0, Nucleated Red Blood Cells % (auto) 0.0, Anion Gap 2L, Glomerular Filtration Rate 56.3, Calcium Level 9.1 08/30/21 11:15: Methicillin-Resist S.aureus DNA PCR NOT DETECTED CBC/BMP Laboratory Tests 08/30/21 09:06 Microbiology Microbiology 08/28/21 Blood Culture - Preliminary, Resulted No growth after 24 hours . All specim... 08/28/21 Respiratory Virus Panel (PCR) ([facility]) - Final, Complete 08/28/21 Blood Culture - Preliminary, Resulted No growth after 24 hours . All specim... DOT KAPLAN MD Aug 30, 2021 13:34
[2021-08-31] VITALS: BP 99/56
[2021-08-31] MEDS: methylPREDNISolone 40MG 1ML VIAL IV SCH ×4 (02:38→20:56)
[2021-08-31] MEDS: PIPERACILLIN/TAZOBACTAM SOD 4.5 GM in D5W MINI-BAG PLUS 50 ML IV SCH ×4 (02:39→20:56)
[2021-08-31 04:00] VITALS: BP 106/62
[2021-08-31 05:35] LABS: BASO % 0.1 % (0.0-1.0); HEMATOCRIT 46.8 % (42.0-52.0); HEMOGLOBIN 13.9 g/dl (13.5-17.5); LYMPH # 0.7 10^3/uL (1.5-5.0); LYMPH % 6.7 % (24.0-44.0); MEAN CORPUSCULAR HGB CONC 29.7 g/dl (32.0-36.5); MEAN CORPUSCULAR VOLUME 94.2 fl (80.0-96.0); MONO # 0.7 10^3/uL (0.0-0.8); MONO % 6.8 % (2.0-8.0); NEUTROPHILS % 85.4 % (36.0-66.0); PLATELET COUNT, AUTOMATED 216 10^3/uL (150-450); RED BLOOD COUNT 4.97 10^6/uL (4.30-6.10); WHITE BLOOD COUNT 10.5 10^3/uL (4.0-10.0)
[2021-08-31 06:01] LABS: CALCIUM LEVEL 8.9 MG/DL (8.8-10.2); CREATININE FOR GFR 1.41 MG/DL (0.70-1.30); GLOMERULAR FILTRATION RATE 52.2 (>42)
[2021-08-31] MEDS: TIOTROPIUM INHALER/CAPSULE (SPIRIVA) INH SCH (07:25)
[2021-08-31 07:41] VITALS: BP 105/56
[2021-08-31] MEDS: ENOXAPARIN 80MG/0.8ML SYRINGE (J1650 PER 10MG) SC SCH ×2 (09:03→20:56)
[2021-08-31] MEDS: DIGOXIN 0.25 MG TAB PO SCH (09:03)
[2021-08-31 10:11] LABS: ABG BASE EXCESS 7.3 (-2.0-2.0); ABG HCO3 35.8 MEQ/L (22.0-26.0); ABG O2 SATURATION 91.9 % (95.0-99.0); ABG PARTIAL PRESSURE O2 67.1 mmHg (75.0-100.0); ABG TOTAL CO2 37.8 MEQ/L (23.0-31.0); ABG pH (ARTERIAL) 7.338 UNITS (7.350-7.450)
[2021-08-31 10:18] LABS: ABG PARTIAL PRESSURE CO2 68.1 mmHg (35.0-45.0)
--- NOTE | 2021-08-31 10:35 | IPNPDOC ---
Subjective Date Seen The patient was seen on 08/31/21. Subjective Chief Complaint/HPI Patient feeling much better today he is sitting up in chair needing only 3 L of oxygen by nasal cannula. He is conversant alert oriented 3 without any conversational dyspnea. He did use BiPAP 8 hours overnight. Complains of some leg pains likely from the massive fluid in the legs extending up the thighs up to the hips with lots of sacral fluids. Objective Physical Examination General Exam: Positive: Alert, Cooperative, No Acute Distress Eye Exam: Positive: PERRLA, Conjunctiva & lids normal, EOMI; Negative: Sclera icteric ENT Exam: Positive: Atraumatic, Mucous membr. moist/pink, Pharynx Normal Neck Exam: Positive: Supple, JVD; Negative: thyromegaly Chest Exam: Positive: Other (bilateral crackles. ); Negative: Rales, Rhonchi, Wheezing Heart Exam: Positive: Tachycardic, Regular Rhythm, Normal S1, Normal S2; Negative: Murmurs, Rubs Abdomen Exam: Positive: Normal bowel sounds, Soft, Hepatospenomegaly; Negative: Tenderness Male Exam: Positive: Normal Genital Exam Extremity Exam: Positive: Edema (up to the hips with large amoundt of sacral edema); Negative: Clubbing, Cyanosis Psych Exam: Positive: Memory Intact, Oriented x 3 Assessment /Plan Assessment 76-year-old male with a past medical history of exposure to agent orange, otherwise no reported history presented to emergency room department with complaints of shortness of breath. He drove his scooter himself to the emergency room. He reports for the last 5 years he has been getting short of breath but did not see medical attention due to taking care of his who reportedly has multiple myeloma. He attributed it to exposure to agent orange. Over the last 2 weeks he was feeling more short of breath, and on tommy day of admission it had progressed to the point where he was short of breath walking from one end of his house to the other, which was not present 2 weeks ago. This made him come to the ED. On presentation to the ED he was saturating at 82% in room air . He was also noted to be in a flutter with RVR and found to have features of Fluid overload. He was admitted for CHF exacerbation with acute hypoxic and hypercarbic respiratory failure. Acute on Chronic Hypoxic and hypercarbic respiratory failure Looks like patient is a chronic CO2 retainer , has partially compensated respiratory acidosis now with acute worsening due to Acute CHF. Chronic respiratory failure likely due to underlying AISHA / obesity hyperventilation + Emphysema+ possible ILD. Would keep his oxygen saturations between 86% to 90% to help with his respiratory drive. daily weights, I/O Continue BIPAP at Bedtime. avoid sedating medications. Appreciate pulmonary consultation. Partially Compensated Respiratory acidosis Likely chronic, suspect AISHA/OHS. Mentating well. Will need outpatient pulmonology referral for sleep study, PFTs Systolic CHF exacerbation with right heart failure and severe pulmonary Hypertension Echo shows EF of 35% to 40% Shows massive fluid overload with edema up to the hips. Could be related to tachycardia induced myopathy from A flutter will start on torsemide daily. Will refer to cardiology. Atrial flutter with RVR likely precipitated by respiratory issues Continue digoxin and therapeutic lovenox. COPD CTA shows Centrilobar emphysema Not sure if there is some exacerbation due to CHF albuterol prn and spiriva and methyl prednisone Acute urinary retention Needed straight cath Plan/VTE VTE Prophylaxis Ordered?: Yes VS, I&O, 24H, Fishbone Vital Signs/I&O Vital Signs Date Time Temp Pulse Resp B/P (MAP) Pulse Ox O2 Delivery O2 Flow Rate FiO2 08/31/21 09:53 89 Nasal Cannula 3.0 08/31/21 09:03 111 08/31/21 07:48 50 08/31/21 07:41 22 105/56 (72) 08/31/21 04:00 98.3 I&O- Last 24 Hours up to 6 AM 08/31/21 06:00 Intake Total 920 ml Output Total 1200 ml Balance -280 ml Laboratory Data 24H LABS Laboratory Tests 2 08/30/21 11:15: Methicillin-Resist S.aureus DNA PCR NOT DETECTED 08/31/21 05:07: Immature Granulocyte % (Auto) 1.0, Neutrophils (%) (Auto) 85.4H, Lymphocytes (%) (Auto) 6.7L, Monocytes (%) (Auto) 6.8, Eosinophils (%) (Auto) 0.0, Basophils (%) (Auto) 0.1, Neutrophils # (Auto) 9.0H, Lymphocytes # (Auto) 0.7L, Monocytes # (Auto) 0.7, Eosinophils # (Auto) 0.0, Basophils # (Auto) 0.0, Nucleated Red Blood Cells % (auto) 0.0, Anion Gap 3L, Glomerular Filtration Rate 52.2, Calcium Level 8.9 08/31/21 10:03: Blood Gas Bicarbonate Standard 31.0H, Arterial Blood pH 7.338L, Arterial Blood Partial Pressure CO2 68.1*H, Arterial Blood Partial Pressure O2 67.1L, Arterial Blood Total CO2 37.8H, Arterial Blood HCO3 35.8H, Arterial Blood Base Excess 7.3H, Arterial Blood Oxygen Saturation 91.9L CBC/BMP Laboratory Tests 08/31/21 05:07 Microbiology Microbiology 08/28/21 Blood Culture - Preliminary, Resulted No Growth after 48 hours. All Specime... 08/28/21 Respiratory Virus Panel (PCR) ([facility]) - Final, Complete 08/28/21 Blood Culture - Preliminary, Resulted No Growth after 48 hours. All Specime... Halley Nunn MD Aug 31, 2021 10:35
[2021-08-31] MEDS: TORSEMIDE 20 MG TAB PO SCH (11:23)
[2021-08-31 11:31] LABS: DIGOXIN LEVEL 0.6 NG/ML (0.5-2.0)
[2021-08-31 12:00] VITALS: BP 114/60
[2021-08-31 20:00] VITALS: BP 119/66
[2021-09-01] VITALS (7 sets, daily range): BP systolic 108–146; BP diastolic 51–79
[2021-09-01] MEDS: PIPERACILLIN/TAZOBACTAM SOD 4.5 GM in D5W MINI-BAG PLUS 50 ML IV SCH ×4 (02:15→20:23)
[2021-09-01] MEDS: methylPREDNISolone 40MG 1ML VIAL IV SCH ×2 (02:15→13:21)
[2021-09-01 06:07] LABS: BASO % 0.1 % (0.0-1.0); HEMATOCRIT 47.9 % (42.0-52.0); HEMOGLOBIN 14.3 g/dl (13.5-17.5); LYMPH # 0.5 10^3/uL (1.5-5.0); LYMPH % 4.8 % (24.0-44.0); MEAN CORPUSCULAR HEMOGLOBIN 27.4 pg (27.0-33.0); MEAN CORPUSCULAR HGB CONC 29.9 g/dl (32.0-36.5); MEAN CORPUSCULAR VOLUME 91.8 fl (80.0-96.0); MONO # 0.5 10^3/uL (0.0-0.8); MONO % 4.8 % (2.0-8.0); NEUTROPHILS # 9.5 10^3/uL (1.5-8.5); NEUTROPHILS % 89.6 % (36.0-66.0); PLATELET COUNT, AUTOMATED 210 10^3/uL (150-450); RED BLOOD COUNT 5.22 10^6/uL (4.30-6.10); WHITE BLOOD COUNT 10.6 10^3/uL (4.0-10.0)
[2021-09-01 06:31] LABS: CALCIUM LEVEL 8.2 MG/DL (8.8-10.2); CREATININE FOR GFR 1.46 MG/DL (0.70-1.30); GLOMERULAR FILTRATION RATE 50.1 (>42); POTASSIUM SERUM 4.7 MEQ/L (3.5-5.1)
[2021-09-01] MEDS: TIOTROPIUM INHALER/CAPSULE (SPIRIVA) INH SCH (08:04)
[2021-09-01] MEDS: ENOXAPARIN 80MG/0.8ML SYRINGE (J1650 PER 10MG) SC SCH ×2 (08:48→20:23)
[2021-09-01] MEDS: TORSEMIDE 20 MG TAB PO SCH (08:48)
[2021-09-01] MEDS: DIGOXIN 0.25 MG TAB PO SCH (08:48)
[2021-09-01] MEDS ORDERED: CARVedilol 6.25 MG TAB PO SCH (09:00)
[2021-09-01] MEDS ORDERED: ELIQ5TAB PO (13:06)
--- NOTE | 2021-09-01 13:16 | IPNPDOC ---
Subjective Date Seen The patient was seen on 09/01/21. Subjective Chief Complaint/HPI As per nurses patient confused this morning however when I rounded later in the morning he was awake alert and oriented I think that he retains CO2 at night from his obesity hypoventilation and hypoxia from his AISHA which makes him confused in the morning. Updated regarding patient condition. She says that patient has not seen any doctor in years and does not have any PMD. Working with PT. Heart rate still not well controlled. Objective Physical Examination General Exam: Positive: Alert, Cooperative, No Acute Distress Eye Exam: Positive: PERRLA, Conjunctiva & lids normal, EOMI; Negative: Sclera icteric ENT Exam: Positive: Atraumatic, Mucous membr. moist/pink, Pharynx Normal Neck Exam: Positive: Supple, JVD; Negative: thyromegaly Chest Exam: Positive: Other (bilateral crackles. ); Negative: Rales, Rhonchi, Wheezing Heart Exam: Positive: Tachycardic, Regular Rhythm, Normal S1, Normal S2; Negative: Murmurs, Rubs Abdomen Exam: Positive: Normal bowel sounds, Soft, Hepatospenomegaly; Negative: Tenderness Male Exam: Positive: Normal Genital Exam Extremity Exam: Positive: Edema (up to the hips with large amoundt of sacral edema); Negative: Clubbing, Cyanosis Psych Exam: Positive: Memory Intact, Oriented x 3 Assessment /Plan Assessment 76-year-old male with a past medical history of exposure to agent orange, otherwise no reported history presented to emergency room department with complaints of shortness of breath. He drove his scooter himself to the emergency room. He reports for the last 5 years he has been getting short of breath but did not see medical attention due to taking care of his who reportedly has multiple myeloma. He attributed it to exposure to agent orange. Over the last 2 weeks he was feeling more short of breath, and on tommy day of admission it had progressed to the point where he was short of breath walking from one end of his house to the other, which was not present 2 weeks ago. This made him come to the ED. On presentation to the ED he was saturating at 82% in room air . He was also noted to be in a flutter with RVR and found to have features of Fluid overload. He was admitted for CHF exacerbation with acute hypoxic and hypercarbic respiratory failure. Acute on Chronic Hypoxic and hypercarbic respiratory failure Looks like patient is a chronic CO2 retainer , has partially compensated respiratory acidosis now with acute worsening due to Acute CHF. Chronic respiratory failure likely due to underlying AISHA / obesity hyperventilation + Emphysema+ possible ILD. Would keep his oxygen saturations between 86% to 90% to help with his respiratory drive. daily weights, I/O Continue BIPAP at Bedtime. avoid sedating medications. Appreciate pulmonary consultation. Will need Sleep study as soon as possible. Acute metabolic encephalopathy mostly int eh mornings due to AISHA and Obesity hypoventilation during night leading to CO2 retention in the morning. Partially Compensated Respiratory acidosis Likely chronic, suspect AISHA/OHS. Mentating well. Will need outpatient pulmonology referral for sleep study, PFTs Systolic CHF exacerbation with right heart failure and severe pulmonary Hypertension Echo shows EF of 35% to 40% Shows massive fluid overload with edema up to the hips. will start on torsemide daily. Spoke with Dr Lobo . They will see patient as outpatient. Atrial flutter with RVR likely precipitated by respiratory issues Continue digoxin and therapeutic lovenox. started on coreg 6.25 q 6 hours with target heart rate of below 90 COPD CTA shows Centrilobar emphysema Not sure if there is some exacerbation due to CHF albuterol prn and spiriva and methyl prednisone Acute urinary retention Needed straight cath Plan/VTE VTE Prophylaxis Ordered?: Yes VS, I&O, 24H, Fishbone Vital Signs/I&O Vital Signs Date Time Temp Pulse Resp B/P (MAP) Pulse Ox O2 Delivery O2 Flow Rate FiO2 09/01/21 12:00 Nasal Cannula 3.0 09/01/21 08:48 115 09/01/21 08:00 97.6 18 116/70 (85) 90 08/31/21 07:48 50 I&O- Last 24 Hours up to 6 AM 09/01/21 05:59 Intake Total 1425 ml Output Total 2000 ml Balance -575 ml Laboratory Data 24H LABS Laboratory Tests 2 09/01/21 05:26: Immature Granulocyte % (Auto) 0.7, Neutrophils (%) (Auto) 89.6H, Lymphocytes (%) (Auto) 4.8L, Monocytes (%) (Auto) 4.8, Eosinophils (%) (Auto) 0.0, Basophils (%) (Auto) 0.1, Neutrophils # (Auto) 9.5H, Lymphocytes # (Auto) 0.5L, Monocytes # (Auto) 0.5, Eosinophils # (Auto) 0.0, Basophils # (Auto) 0.0, Nucleated Red Blood Cells % (auto) 0.0, Anion Gap 4L, Glomerular Filtration Rate 50.1, Calcium Level 8.2L CBC/BMP Laboratory Tests 09/01/21 05:26 Microbiology Microbiology 08/28/21 Blood Culture - Preliminary, Resulted No Growth after 72 hours. All specime... 08/28/21 Respiratory Virus Panel (PCR) ([facility]) - Final, Complete 08/28/21 Blood Culture - Preliminary, Resulted No Growth after 72 hours. All specime... Halley Nunn MD Sep 01, 2021 13:16
[2021-09-01] MEDS: CARVedilol 6.25 MG TAB PO SCH ×2 (13:22→17:32)
[2021-09-02] VITALS (15 sets, daily range): BP systolic 103–126; BP diastolic 61–77; O2SAT 87–94
[2021-09-02] MEDS: CARVedilol 6.25 MG TAB PO SCH ×4 (00:58→17:15)
[2021-09-02] MEDS: PIPERACILLIN/TAZOBACTAM SOD 4.5 GM in D5W MINI-BAG PLUS 50 ML IV SCH ×4 (02:15→20:06)
[2021-09-02] MEDS: methylPREDNISolone 40MG 1ML VIAL IV SCH ×2 (02:15→13:44)
[2021-09-02 06:57] LABS: ABG BASE EXCESS 10.1 (-2.0-2.0); ABG HCO3 38.5 MEQ/L (22.0-26.0); ABG O2 SATURATION 92.9 % (95.0-99.0); ABG PARTIAL PRESSURE O2 71.6 mmHg (75.0-100.0); ABG STANDARD HCO3 33.7 MEQ/L (22.0-26.0); ABG TOTAL CO2 40.7 MEQ/L (23.0-31.0); ABG pH (ARTERIAL) 7.365 UNITS (7.350-7.450)
[2021-09-02 07:15] LABS: HEMATOCRIT 47.7 % (42.0-52.0); HEMOGLOBIN 14.2 g/dl (13.5-17.5); LYMPH # 0.5 10^3/uL (1.5-5.0); LYMPH % 7.1 % (24.0-44.0); MEAN CORPUSCULAR HEMOGLOBIN 27.7 pg (27.0-33.0); MEAN CORPUSCULAR HGB CONC 29.8 g/dl (32.0-36.5); MONO # 0.5 10^3/uL (0.0-0.8); MONO % 6.7 % (2.0-8.0); NEUTROPHILS # 6.4 10^3/uL (1.5-8.5); NEUTROPHILS % 85.5 % (36.0-66.0); PLATELET COUNT, AUTOMATED 176 10^3/uL (150-450); RED BLOOD COUNT 5.13 10^6/uL (4.30-6.10); WHITE BLOOD COUNT 7.5 10^3/uL (4.0-10.0)
[2021-09-02 07:39] LABS: CALCIUM LEVEL 8.1 MG/DL (8.8-10.2); CREATININE FOR GFR 1.36 MG/DL (0.70-1.30); GLOMERULAR FILTRATION RATE 54.4 (>42); POTASSIUM SERUM 4.6 MEQ/L (3.5-5.1)
[2021-09-02] MEDS: ENOXAPARIN 80MG/0.8ML SYRINGE (J1650 PER 10MG) SC SCH ×2 (08:05→20:06)
[2021-09-02] MEDS: TORSEMIDE 20 MG TAB PO SCH (08:05)
[2021-09-02] MEDS: DIGOXIN 0.25 MG TAB PO SCH (08:05)
[2021-09-02] MEDS: TIOTROPIUM INHALER/CAPSULE (SPIRIVA) INH SCH (08:32)
--- NOTE | 2021-09-02 12:52 | IPNPDOC ---
Subjective Date Seen The patient was seen on 09/02/21. Subjective Chief Complaint/HPI History of Patient complains of having loose bowel movements he had 2 such yesterday. Patient reports he slept all night long without waking up and he used the BiPAP machine all night long. He feels much better in the morning now from before. His leg swelling is coming down. Says his appetite is good. His ABG is improved. Objective Physical Examination General Exam: Positive: Alert, Cooperative, No Acute Distress Eye Exam: Positive: PERRLA, Conjunctiva & lids normal, EOMI; Negative: Sclera icteric ENT Exam: Positive: Atraumatic, Mucous membr. moist/pink, Pharynx Normal Neck Exam: Positive: Supple, JVD; Negative: thyromegaly Chest Exam: Positive: Other (bilateral crackles. ); Negative: Rales, Rhonchi, Wheezing Heart Exam: Positive: Tachycardic, Regular Rhythm, Normal S1, Normal S2; Negative: Murmurs, Rubs Abdomen Exam: Positive: Normal bowel sounds, Soft, Hepatospenomegaly; Negative: Tenderness Male Exam: Positive: Normal Genital Exam Extremity Exam: Positive: Edema (Up to the knees still has some sacral edema); Negative: Clubbing, Cyanosis Psych Exam: Positive: Memory Intact, Oriented x 3 Assessment /Plan Assessment 76-year-old male with a past medical history of exposure to agent orange, otherwise no reported history presented to emergency room department with complaints of shortness of breath. He drove his scooter himself to the emergency room. He reports for the last 5 years he has been getting short of breath but did not see medical attention due to taking care of his who reportedly has multiple myeloma. He attributed it to exposure to agent orange. Over the last 2 weeks he was feeling more short of breath, and on tommy day of admission it had progressed to the point where he was short of breath walking from one end of his house to the other, which was not present 2 weeks ago. This made him come to the ED. On presentation to the ED he was saturating at 82% in room air . He was also noted to be in a flutter with RVR and found to have features of Fluid overload. He was admitted for CHF exacerbation with acute hypoxic and hypercarbic respiratory failure. Acute on Chronic Hypoxic and hypercarbic respiratory failure Looks like patient is a chronic CO2 retainer , has partially compensated respiratory acidosis now with acute worsening due to Acute CHF. Chronic respiratory failure likely due to underlying AISHA / obesity hyperventilation + Emphysema+ possible ILD. Would keep his oxygen saturations between 86% to 90% to help with his respiratory drive. daily weights, I/O Continue BIPAP at Bedtime. avoid sedating medications. Appreciate pulmonary consultation. Will need Sleep study as soon as possible. Acute metabolic encephalopathy mostly in the mornings due to AISHA and Obesity hypoventilation during night leading to CO2 retention in the morning. Now that he has been using the BiPAP overnight this seems to be much better Partially Compensated Respiratory acidosis Likely chronic, suspect AISHA/OHS. Mentating well. Will need outpatient pulmonology referral for sleep study, PFTs Systolic CHF exacerbation with right heart failure and severe pulmonary Hypertension Echo shows EF of 35% to 40% Shows massive fluid overload with edema up to the hips. will start on torsemide daily. Spoke with Dr Lobo . They will see patient as outpatient. Atrial flutter with RVR likely precipitated by respiratory issues Continue digoxin and therapeutic lovenox. started on coreg 6.25 q 6 hours with target heart rate of below 90 COPD CTA shows Centrilobar emphysema Not sure if there is some exacerbation due to CHF albuterol prn and spiriva and methyl prednisone Plan/VTE VTE Prophylaxis Ordered?: Yes VS, I&O, [facility] Vital Signs/I&O Vital Signs Date Time Temp Pulse Resp B/P (MAP) Pulse Ox O2 Delivery O2 Flow Rate FiO2 09/02/21 12:13 107 109/61 09/02/21 12:00 97.1 17 93 Nasal Cannula 3.0 08/31/21 07:48 50 I&O- Last 24 Hours up to 6 AM 09/02/21 05:59 Intake Total 2020 ml Output Total 800 ml Balance 1220 ml Laboratory Data 24H LABS Laboratory Tests 2 09/02/21 06:50: Blood Gas Bicarbonate Standard 33.7H, Arterial Blood pH 7.365, Arterial Blood Partial Pressure CO2 69.0*H, Arterial Blood Partial Pressure O2 71.6L, Arterial Blood Total CO2 40.7H, Arterial Blood HCO3 38.5H, Arterial Blood Base Excess 10.1H, Arterial Blood Oxygen Saturation 92.9L 09/02/21 06:56: Immature Granulocyte % (Auto) 0.7, Neutrophils (%) (Auto) 85.5H, Lymphocytes (%) (Auto) 7.1L, Monocytes (%) (Auto) 6.7, Eosinophils (%) (Auto) 0.0, Basophils (%) (Auto) 0.0, Neutrophils # (Auto) 6.4, Lymphocytes # (Auto) 0.5L, Monocytes # (Auto) 0.5, Eosinophils # (Auto) 0.0, Basophils # (Auto) 0.0, Nucleated Red Blood Cells % (auto) 0.0 09/02/21 06:57: Anion Gap 2L, Glomerular Filtration Rate 54.4, Calcium Level 8.1L CBC/BMP Laboratory Tests 09/02/21 06:56 09/02/21 06:57 Microbiology Microbiology 08/28/21 Blood Culture - Preliminary, Resulted No Growth after 72 hours. All specime... 08/28/21 Respiratory Virus Panel (PCR) ([facility]) - Final, Complete 08/28/21 Blood Culture - Preliminary, Resulted No Growth after 72 hours. All specime... Halley Nunn MD Sep 02, 2021 12:52
[2021-09-03] VITALS (16 sets, daily range): BP systolic 93–123; BP diastolic 54–86; O2SAT 87–96
[2021-09-03] MEDS: CARVedilol 6.25 MG TAB PO SCH ×2 (00:29→05:17)
[2021-09-03] MEDS: PIPERACILLIN/TAZOBACTAM SOD 4.5 GM in D5W MINI-BAG PLUS 50 ML IV SCH (02:53)
[2021-09-03] MEDS: methylPREDNISolone 40MG 1ML VIAL IV SCH ×2 (02:53→14:29)
[2021-09-03 05:40] LABS: BASO % 0.2 % (0.0-1.0); HEMATOCRIT 49.1 % (42.0-52.0); HEMOGLOBIN 14.8 g/dl (13.5-17.5); LYMPH # 0.8 10^3/uL (1.5-5.0); LYMPH % 9.6 % (24.0-44.0); MEAN CORPUSCULAR HEMOGLOBIN 27.9 pg (27.0-33.0); MEAN CORPUSCULAR HGB CONC 30.1 g/dl (32.0-36.5); MEAN CORPUSCULAR VOLUME 92.6 fl (80.0-96.0); MONO # 0.8 10^3/uL (0.0-0.8); MONO % 10.3 % (2.0-8.0); NEUTROPHILS # 6.4 10^3/uL (1.5-8.5); PLATELET COUNT, AUTOMATED 181 10^3/uL (150-450)
[2021-09-03 06:03] LABS: CREATININE FOR GFR 1.32 MG/DL (0.70-1.30); GLOMERULAR FILTRATION RATE 56.3 (>42); POTASSIUM SERUM 4.7 MEQ/L (3.5-5.1)
[2021-09-03] MEDS: CARVedilol 12.5 MG TAB PO SCH ×4 (06:12→23:58)
[2021-09-03] MEDS: TORSEMIDE 20 MG TAB PO SCH (08:17)
[2021-09-03] MEDS: ENOXAPARIN 80MG/0.8ML SYRINGE (J1650 PER 10MG) SC SCH ×2 (08:17→20:58)
[2021-09-03] MEDS: DIGOXIN 0.25 MG TAB PO SCH (08:17)
[2021-09-03] MEDS: TIOTROPIUM INHALER/CAPSULE (SPIRIVA) INH SCH (08:42)
--- NOTE | 2021-09-03 14:42 | IPNPDOC ---
Subjective Date Seen The patient was seen on 09/03/21. Subjective Chief Complaint/HPI No issues overnight. Patient feeling well. Did not use CPAP last night. Has been having loose bowel movements about twice per day most likely related to antibiotics. Pulse rate not controlled. Objective Physical Examination General Exam: Positive: Alert, Cooperative, No Acute Distress Eye Exam: Positive: PERRLA, Conjunctiva & lids normal, EOMI; Negative: Sclera icteric ENT Exam: Positive: Atraumatic, Mucous membr. moist/pink, Pharynx Normal Neck Exam: Positive: Supple, JVD; Negative: thyromegaly Chest Exam: Positive: Other (bilateral crackles. ); Negative: Rales, Rhonchi, Wheezing Heart Exam: Positive: Tachycardic, Regular Rhythm, Normal S1, Normal S2; Negative: Murmurs, Rubs Abdomen Exam: Positive: Normal bowel sounds, Soft, Hepatospenomegaly; Negative: Tenderness Male Exam: Positive: Normal Genital Exam Extremity Exam: Positive: Edema (Up to the knees still has some sacral edema); Negative: Clubbing, Cyanosis Psych Exam: Positive: Memory Intact, Oriented x 3 Assessment /Plan Assessment 76-year-old male with a past medical history of exposure to agent orange, otherwise no reported history presented to emergency room department with complaints of shortness of breath. He drove his scooter himself to the emergency room. He reports for the last 5 years he has been getting short of breath but did not see medical attention due to taking care of his who reportedly has multiple myeloma. He attributed it to exposure to agent orange. Over the last 2 weeks he was feeling more short of breath, and on tommy day of admission it had progressed to the point where he was short of breath walking from one end of his house to the other, which was not present 2 weeks ago. This made him come to the ED. On presentation to the ED he was saturating at 82% in room air . He was also noted to be in a flutter with RVR and found to have features of Fluid overload. He was admitted for CHF exacerbation with acute hypoxic and hypercarbic respiratory failure. Acute on Chronic Hypoxic and hypercarbic respiratory failure Looks like patient is a chronic CO2 retainer , has partially compensated respiratory acidosis now with acute worsening due to Acute CHF. Chronic respiratory failure likely due to underlying AISHA / obesity hyperventi lation + Emphysema+ possible ILD. Would keep his oxygen saturations between 86% to 90% to help with his respiratory drive. daily weights, I/O Continue BIPAP at Bedtime. avoid sedating medications. Appreciate pulmonary consultation. Will need Sleep study as soon as possible. Acute metabolic encephalopathy mostly in the mornings due to AISHA and Obesity hypoventilation during night leading to CO2 retention in the morning. Now that he has been using the BiPAP overnight this seems to be much better Partially Compensated Respiratory acidosis Likely chronic, suspect AISHA/OHS. Mentating well. Will need outpatient pulmonology referral for sleep study, PFTs Systolic CHF exacerbation with right heart failure and severe pulmonary Hypertension Echo shows EF of 35% to 40% Shows massive fluid overload with edema up to the hips. will start on torsemide daily. Spoke with Dr Lobo . They will see patient as outpatient. Atrial flutter with RVR likely precipitated by respiratory issues Continue digoxin and therapeutic lovenox. started on coreg q 6 hours with target heart rate of below 90 COPD CTA shows Centrilobar emphysema Not sure if there is some exacerbation due to CHF albuterol prn and spiriva and methyl prednisone Plan/VTE VTE Prophylaxis Ordered?: Yes VS, I&O, 24H, Fishbone Vital Signs/I&O Vital Signs Date Time Temp Pulse Resp B/P (MAP) Pulse Ox O2 Delivery O2 Flow Rate FiO2 09/03/21 08:17 105 09/03/21 08:00 97.2 19 117/71 (86) 91 Nasal Cannula 3.0 08/31/21 07:48 50 I&O- Last 24 Hours up to 6 AM 09/03/21 05:59 Intake Total 910 ml Output Total 1350 ml Balance -440 ml Laboratory Data 24H LABS Laboratory Tests 2 09/03/21 04:59: Immature Granulocyte % (Auto) 0.9, Neutrophils (%) (Auto) 79.0H, Lymphocytes (%) (Auto) 9.6L, Monocytes (%) (Auto) 10.3H, Eosinophils (%) (Auto) 0.0, Basophils (%) (Auto) 0.2, Neutrophils # (Auto) 6.4, Lymphocytes # (Auto) 0.8L, Monocytes # (Auto) 0.8, Eosinophils # (Auto) 0.0, Basophils # (Auto) 0.0, Nucleated Red Blood Cells % (auto) 0.0, Anion Gap 0L, Glomerular Filtration Rate 56.3, Calcium Level 8.0L CBC/BMP Laboratory Tests 09/03/21 04:59 Microbiology Microbiology 08/28/21 Blood Culture - Final, Complete NO GROWTH AFTER 5 DAYS 08/28/21 Respiratory Virus Panel (PCR) ([facility]) - Final, Complete 08/28/21 Blood Culture - Final, Complete NO GROWTH AFTER 5 DAYS Halley Nunn MD Sep 03, 2021 09:08
[2021-09-04] VITALS (11 sets, daily range): BP systolic 100–144; BP diastolic 60–85; O2SAT 84–92
[2021-09-04] MEDS: methylPREDNISolone 40MG 1ML VIAL IV SCH (01:51)
[2021-09-04] MEDS: CARVedilol 12.5 MG TAB PO SCH (05:28)
[2021-09-04 05:57] LABS: BASO % 0.2 % (0.0-1.0); HEMATOCRIT 51.2 % (42.0-52.0); HEMOGLOBIN 15.2 g/dl (13.5-17.5); LYMPH # 0.8 10^3/uL (1.5-5.0); MEAN CORPUSCULAR HEMOGLOBIN 27.2 pg (27.0-33.0); MEAN CORPUSCULAR HGB CONC 29.7 g/dl (32.0-36.5); MEAN CORPUSCULAR VOLUME 91.8 fl (80.0-96.0); MONO # 0.6 10^3/uL (0.0-0.8); MONO % 7.3 % (2.0-8.0); NEUTROPHILS % 82.4 % (36.0-66.0); PLATELET COUNT, AUTOMATED 183 10^3/uL (150-450); RED BLOOD COUNT 5.58 10^6/uL (4.30-6.10); WHITE BLOOD COUNT 8.5 10^3/uL (4.0-10.0)
[2021-09-04 06:17] LABS: BLOOD UREA NITROGEN 42 MG/DL (7-18); CALCIUM LEVEL 8.5 MG/DL (8.8-10.2); CARBON DIOXIDE LEVEL 41 MEQ/L (21-32); CHLORIDE LEVEL 100 MEQ/L (98-107); CREATININE FOR GFR 1.19 MG/DL (0.70-1.30); GLOMERULAR FILTRATION RATE > 60.0 (>42); GLUCOSE, FASTING 151 MG/DL (70-100); POTASSIUM SERUM 4.8 MEQ/L (3.5-5.1); SODIUM LEVEL 143 MEQ/L (136-145)
[2021-09-04] MEDS: TIOTROPIUM INHALER/CAPSULE (SPIRIVA) INH SCH (07:46)
[2021-09-04] MEDS: TORSEMIDE 20 MG TAB PO SCH (08:00)
[2021-09-04] MEDS: ENOXAPARIN 80MG/0.8ML SYRINGE (J1650 PER 10MG) SC SCH (08:00)
[2021-09-04] MEDS: DIGOXIN 0.25 MG TAB PO SCH (08:00)
[2021-09-04] MEDS ORDERED: ENTR1TAB PO (09:11)
[2021-09-04] MEDS: ENTRESTO 24-26MG TABLET (SACUBITRIL/VALSARTAN) PO SCH ×2 (09:39→20:26)
[2021-09-04] MEDS: bisoproloL fumarate 10 MG TAB PO SCH (10:22)
--- NOTE | 2021-09-04 11:49 | IPNPDOC ---
Subjective Date Seen The patient was seen on 09/04/21. Subjective Chief Complaint/HPI Patient continues to be tachycardic at 120. Remains in a flutter with 2 is to 1 conduction. He has been using the BiPAP 4 to 5 hours at night. He is leg swelling has improved a lot. He wants to go home however have explained that his heart rate needs to be better controlled before he can go home. Objective Physical Examination General Exam: Positive: Alert, Cooperative, No Acute Distress Eye Exam: Positive: PERRLA, Conjunctiva & lids normal, EOMI; Negative: Sclera icteric ENT Exam: Positive: Atraumatic, Mucous membr. moist/pink, Pharynx Normal Neck Exam: Positive: Supple, JVD; Negative: thyromegaly Chest Exam: Positive: Other (bilateral crackles. ); Negative: Rales, Rhonchi, Wheezing Heart Exam: Positive: Tachycardic, Regular Rhythm, Normal S1, Normal S2; Negative: Murmurs, Rubs Abdomen Exam: Positive: Normal bowel sounds, Soft, Hepatospenomegaly; Negative: Tenderness Male Exam: Positive: Normal Genital Exam Extremity Exam: Positive: Edema (Up to the knees still has some sacral edema); Negative: Clubbing, Cyanosis Psych Exam: Positive: Memory Intact, Oriented x 3 Assessment /Plan Assessment 76-year-old male with a past medical history of exposure to agent orange, otherwise no reported history presented to emergency room department with complaints of shortness of breath. He drove his scooter himself to the emergency room. He reports for the last 5 years he has been getting short of breath but did not see medical attention due to taking care of his who reportedly has multiple myeloma. He attributed it to exposure to agent orange. Over the last 2 weeks he was feeling more short of breath, and on tommy day of admission it had progressed to the point where he was short of breath walking from one end of his house to the other, which was not present 2 weeks ago. This made him come to the ED. On presentation to the ED he was saturating at 82% in room air . He was also noted to be in a flutter with RVR and found to have features of Fluid overload. He was admitted for CHF exacerbation with acute hypoxic and hypercarbic respiratory failure. Systolic CHF exacerbation with right heart failure and severe pulmonary Hypertension Echo shows EF of 35% to 40% continue torsemide 20 mg daily started on Entresto Atrial flutter with RVR with decreased to 1 conduction Rate not controlled with digoxin and Coreg Discussed patient today again with Dr. Cummings he recommended changing Coreg to bisoprolol and start the patient on Entresto. He will also see the patient. Continue therapeutic lovenox. Eliquis and entresto prescription has been sent to his pharmacy. Acute on Chronic Hypoxic and hypercarbic respiratory failure Looks like patient is a chronic CO2 retainer , has partially compensated respiratory acidosis now with acute worsening due to Acute CHF. Chronic respiratory failure likely due to underlying AISHA / obesity hyperventilation + Emphysema+ possible ILD. Would keep his oxygen saturations between 86% to 90% to help with his respiratory drive. daily weights, I/O Continue BIPAP at Bedtime. avoid sedating medications. Appreciate pulmonary consultation. Will need Sleep study as soon as possible. Discussed this with DR Serrano. He is going to look into it today to see how quickly he can arrange it. Will again touch base with him tomorrow Acute metabolic encephalopathy mostly in the mornings due to AISHA and Obesity hypoventilation during night leading to CO2 retention in the morning. Now that he has been using the BiPAP overnight this seems to be much better Partially Compensated Respiratory acidosis Likely chronic, suspect AISHA/OHS. Mentating well. Will need outpatient pulmonology referral for sleep study, PFTs COPD CTA shows Centrilobar emphysema On spiriva and prednisone Plan/VTE VTE Prophylaxis Ordered?: Yes VS, I&O, 24H, Fishbone Vital Signs/I&O Vital Signs Date Time Temp Pulse Resp B/P (MAP) Pulse Ox O2 Delivery O2 Flow Rate FiO2 09/04/21 10:22 120 112/62 09/04/21 08:00 3.0 09/04/21 07:06 97.4 20 94 Nasal Cannula 08/31/21 07:48 50 I&O- Last 24 Hours up to 6 AM 09/04/21 06:00 Intake Total 1770 ml Output Total 2150 ml Balance -380 ml Laboratory Data 24H LABS Laboratory Tests 2 09/04/21 05:20: Immature Granulocyte % (Auto) 1.1, Neutrophils (%) (Auto) 82.4H, Lymphocytes (%) (Auto) 9.0L, Monocytes (%) (Auto) 7.3, Eosinophils (%) (Auto) 0.0, Basophils (%) (Auto) 0.2, Neutrophils # (Auto) 7.0, Lymphocytes # (Auto) 0.8L, Monocytes # (Auto) 0.6, Eosinophils # (Auto) 0.0, Basophils # (Auto) 0.0, Nucleated Red Blood Cells % (auto) 0.0, Anion Gap 2L, Glomerular Filtration Rate > 60.0, Calcium Level 8.5L CBC/BMP Laboratory Tests 09/04/21 05:20 Microbiology Microbiology 08/28/21 Blood Culture - Final, Complete NO GROWTH AFTER 5 DAYS 08/28/21 Respiratory Virus Panel (PCR) ([facility]) - Final, Complete 08/28/21 Blood Culture - Final, Complete NO GROWTH AFTER 5 DAYS Halley Nunn MD Sep 04, 2021 11:49
--- NOTE | 2021-09-04 20:10 | CR ---
CONSULTATION DATE: 08/28/2021 REFERRING PHYSICIAN: Dr. Halley Nunn REASON FOR CONSULTATION: Typical atrial flutter and systolic heart failure ([id number]). HISTORY OF PRESENT ILLNESS: Mr. Karl Fox is a pleasant 76-year-old man who was hospitalized to [facility] 08/28/2021 with a presenting complaint of worsening shortness of breath. He was found to have hypoxic respiratory failure, heart failure, respiratory acidosis with compensation and atrial flutter. He was placed on Digoxin and Carvedilol for the atrial flutter, but despite this, heart rate has been difficult to control. He has been diuresing well with loop diuretics. The patient reports a 5-year history of exertional dyspnea which has rapidly deteriorated in the 2 weeks prior to admission to the point of dyspnea with minimal activity. No PND. He was having some orthopnea. No chest pain or chest discomfort with or without activity. He has noticed worsening edema in both legs prior to admission for 2 months prior to his presentation to the hospital. No pre-syncope or syncope. He is not aware of any palpitations. No embolic events. No claudication. Echocardiogram Doppler 08/29/2021 reported borderline LVH with normal LV cavity size, septal wall motion abnormality related to right ventricle pressure overload. The other armenta of the left ventricle appeared to move normally or slightly hypokinetic. Moderate reduction of LV systolic function. LVF 35-40% by facial estimate. Left ventricle wall thicknesses were 1.2 cm septum and 1.2 cm posterior wall. Moderate dilatation of the left atrium and at least mild elevation of estimated mean left atrial pressure. Moderate right ventricle dilatation and right ventricle hypokinesis and likely severe pulmonary hypertension. Mild to moderate dilatation of the inferior vena cava with absent expiratory collapse, in keeping with elevated CVP of at least 20 MMHE. Mild degenerative changes of the mitral valve. Trace through mild mitral regurgitation. No pericardial effusion. OTHER PAST MEDICAL AND SURGICAL HISTORY: No prior surgeries. Past medical history as per HPI above. SOCIAL HISTORY: The patient lives with his . One pack per day smoker. No alcohol. No illicit drugs. FAMILY HISTORY: Father had heart failure. REVIEW OF SYSTEMS: A 10 point review of systems all negative other than that noted in the HPI. ALLERGIES: No known adverse drug reactions. MEDICATIONS PRIOR TO ADMISSION: 1. Multivitamin one daily. 2. Vitamin C 500 mg daily. 3. Zinc Sulfate 220 mg daily. CURRENT MEDICATIONS IN HOSPITAL: 1. Prednisone 40 mg p.o. daily. 2. Entresto 24-26 mg one twice daily. 3. Bisoprolol 10 mg daily. 4. Torsemide 20 mg daily. 5. Spiriva one inhalation daily. 6. Albuterol nebulizers 2.5 mg q. 6 h. p.r.n. 7. Digoxin 0.25 mg p.o. daily. 8. Acetaminophen 650 mg per rectum q. 6 h. p.r.n. 9. Lovenox 75 mg subcutaneously twice daily. PHYSICAL EXAMINATION: GENERAL APPEARANCE: Pleasant overweight man who appears his chronologic age who was not in any respiratory or psychologic distress. VITAL SIGNS: Temperature 97.6, pulse 97 (typical atrial flutter with variable mirlande conduction on forestry foreman). Respiratory rate 20, blood pressure 106/60, 02 saturation 94% on 02 2 liters per minute via nasal cannula. HEENT: Trachea midline, no palpable thyroid. NECK: Jugular venous pulsations were at 12 cm with the patient sitting at 90 degrees. FF Waves present. Carotids are normal in contour and without bruits. LUNGS: Respiratory expansion effort was good. No crackles or wheezes. HEART: No palpable apex beat. No Parasternal lifts, heaves, thrills or palpable heart sounds. First heart sounds variable in intensity. Second heart sounds normal. No S3 or murmurs appreciated. No palpable abdominal aorta. Pedal pulses normal. Two mm pedal edema was present at mid 2 level bilaterally. ABDOMEN: Obese, soft, nontender with normoactive bowel sounds. No splenomegaly or organomegaly. This was difficult to assess due to abdominal obesity. EXTREMITIES: No clubbing of the extremities. No varicose veins. SKIN: No skin lesions, skin pallor or rashes. NEUROLOGICAL: Oriented to person, place and time. Normal mood and effect. Gait deferred. MUSCULOSKELETAL: Curvature of the spine appeared normal. Muscle strength and tone appeared normal. No abnormal muscle Fasciculations. Stool for occult blood to be ordered. IMAGING: Electrocardiogram 08/28/2021 at 21:24 hours shows typical atrial flutter with 2:1 EV conduction, rapid ventricular response, ventricular rate 124 BPM. Poor R-wave progression and low QRS voltages, nonspecific ST abnormalities. I have visualized the patient's portable chest x-ray acquired on 08/28/2021. It is poorly vascular redistribution and enlargement of the pulmonary wreath. No cardiomegaly despite the portable technique. No pleural effusions. Chest CTA 08/28/2021 reported moderate to severe paraseptal and central lobular emphysematous changes, subpleural interstitial infiltrates in both lung bases with small cystic changes, suggesting lower lobe interstitial chronic lung disease. Multiple mediastinal nodes, likely post inflammatory. No pulmonary emboli. Bilateral adrenal hyperplasia. Small amount of free intraperitoneal fluid present. LABORATORY WORKUP: 09/04/2021 was reviewed: Hemoglobin 15.2, hematocrit 51.2, platelets 183. Sodium 141, potassium 4.8, chloride 100, CO2 41, creatinine 1.19, estimated GFR greater than 60, glucose 451. ASSESSMENT AND RECOMMENDATIONS: 1. Typical atrial flutter with rapid ventricular response. No palpitations. He needs to have rapid response but heart rate has started to improve with the switch from Carvedilol to Bisoprolol. The plan will be to continue Bisoprolol currently at 10 mg daily and escalate if needed. Continue Digoxin 0.25 mg p.o. daily. I will switch him from Lovenox subcutaneously to a direct oral anticoagulant. Stool for occult blood to be ordered. 2. Systolic heart failure ([id number]). 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 Agree with addition of Entresto. Continue with the change from Carvedilol to Bisoprolol to improve heart rate control. Continue Torsemide 20 mg daily. 3. Right heart failure and chronic cor pulmonale. This patient's right heart failure and chronic cor pulmonale are due to lung disease (emphysema). The patient has a prior history of exposure to Agent [place]. He has significant pulmonary hypertension. Left heart failure likely contributes to the right heart failure as well. The plan will be to continue Torsemide. Continue treatment of COPD as per Hospitalist service. 4. Abnormal EKG - EKG findings explained above. MTDD
[2021-09-04] MEDS: APIXABAN 5 MG TAB (ELIQUIS) PO SCH (20:26)
--- NOTE | 2021-09-04 21:12 | ECGEPIP ---
[facility] Test Date: 2021-09-04 Pat Name: CHAPIS RUEDA Department: Room: [place] [address] Gender: Male Clinic Office Assistant: petra : [id number] Requested By: Halley Nunn Order Number: [id number] Reading MD: Armani Sue Measurements Intervals [place] Rate: 120 P: -86 MA: QRS: 72 QRSD: 84 T: 104 QT: 302 QTc: 426 Interpretive Statements Poor data quality, interpretation may be adversely affected Probably atrial flutter with 3:1 AV conduction Compared to prior tracings in the system Electronically Signed on 09-04-2021 21:11:59 EDT by Armani Sue
[2021-09-05] VITALS: BP 100/60
[2021-09-05 04:00] VITALS: BP 103/63
[2021-09-05 06:11] LABS: BASO # 0.1 10^3/uL (0.0-0.2); BASO % 0.7 % (0.0-1.0); EOS # 0.1 10^3/uL (0.0-0.5); EOS % 1.4 % (0.0-3.0); HEMATOCRIT 52.4 % (42.0-52.0); HEMOGLOBIN 15.5 g/dl (13.5-17.5); MEAN CORPUSCULAR HEMOGLOBIN 27.4 pg (27.0-33.0); MEAN CORPUSCULAR HGB CONC 29.6 g/dl (32.0-36.5); MEAN CORPUSCULAR VOLUME 92.7 fl (80.0-96.0); MONO # 0.9 10^3/uL (0.0-0.8); NEUTROPHILS # 7.1 10^3/uL (1.5-8.5); NEUTROPHILS % 68.3 % (36.0-66.0); PLATELET COUNT, AUTOMATED 200 10^3/uL (150-450); RED BLOOD COUNT 5.65 10^6/uL (4.30-6.10); WHITE BLOOD COUNT 10.3 10^3/uL (4.0-10.0)
[2021-09-05 06:30] LABS: BLOOD UREA NITROGEN 46 MG/DL (7-18); CALCIUM LEVEL 8.6 MG/DL (8.8-10.2); CARBON DIOXIDE LEVEL 42 MEQ/L (21-32); CHLORIDE LEVEL 102 MEQ/L (98-107); CREATININE FOR GFR 1.05 MG/DL (0.70-1.30); GLOMERULAR FILTRATION RATE > 60.0 (>42); GLUCOSE, FASTING 120 MG/DL (70-100); POTASSIUM SERUM 4.3 MEQ/L (3.5-5.1); SODIUM LEVEL 145 MEQ/L (136-145)
[2021-09-05] MEDS: TIOTROPIUM INHALER/CAPSULE (SPIRIVA) INH SCH (07:37)
[2021-09-05 08:00] VITALS: BP 121/56; O2SAT 92
[2021-09-05] MEDS: predniSONE 20 MG TAB PO SCH (08:26)
[2021-09-05] MEDS: TORSEMIDE 20 MG TAB PO SCH (08:26)
[2021-09-05] MEDS: ENTRESTO 24-26MG TABLET (SACUBITRIL/VALSARTAN) PO SCH ×2 (08:26→21:22)
[2021-09-05] MEDS: bisoproloL fumarate 10 MG TAB PO SCH (08:26)
[2021-09-05] MEDS: DIGOXIN 0.25 MG TAB PO SCH (08:27)
[2021-09-05] MEDS: APIXABAN 5 MG TAB (ELIQUIS) PO SCH ×2 (08:27→21:22)
[2021-09-05 12:00] VITALS: BP 104/58; O2SAT 93
--- NOTE | 2021-09-05 15:19 | IPNPDOC ---
Text Note Date of Service The patient was seen on 09/05/21. NOTE Subjective: Patient is a 76-year-old male who presented to the emergency dep artment with shortness of breath and was found to be in atrial flutter with a 2- 1 conduction. Patient says he is feeling well. Patient's medications were changed yesterday by cardiology and the patient's heart rate has been better controlled. Patient has however still hypoxic on 4 to 5 L of oxygen via nasal cannula. Patient denies any difficulty breathing at this time but does state he gets winded when he walks around. Review of systems: General: Patient denies fevers HEENT: Patient denies headaches Cardiovascular: Patient denies chest pain Respiratory: Patient reports shortness of breath with exertion but denies shortness of breath at rest GI: Patient denies abdominal pain, nausea, vomiting, diarrhea : Patient denies increased frequency or pain with urination Extremities: Patient denies swelling or pain in extremities Neurological: Patient denies numbness or tingling in legs Physical exam: Vitals: See below General: Alert and oriented male patient who was sitting up in the bedside chair when I walked in. Patient had nasal cannula oxygen in place. Patient did not appear to be in any acute distress. HEENT: Normocephalic, atraumatic, moist mucous membranes. Neck: No lymphadenopathy or thyromegaly Cardiac: Regular rate and rhythm, no murmurs, normal S1, normal S2 Pulm: Bibasilar crackles otherwise clear to auscultation upper lung daniel Abd: Nondistended, nontender to palpation, normal bowel sounds Ext: No edema bilateral lower extremities Labs: See below Imaging: No new imaging is been performed Assessment/plan: 76-year-old male with past medical history of exposure to agent orange who reported to the emergency department with complaints of shortness of breath for the last 5 years which has been worsening for the past 2 weeks prior to admission into the hospital. Patient was admitted for CHF exacerbation with acute hypoxic and hypercarbic respiratory failure. 1. Atrial flutter with RVR with 2-[address] Cummings saw the patient recommended changing the patient's Coreg to bisoprolol and start the patient on Entresto. This has improved with the patient's heart rate down into the normal range. We will continue to monitor. I appreciate Dr. Edwards's help in treating the patient. 2. Acute on chronic hypoxic and hypercarbic respiratory failure. Patient appeared to be a chronic CO2 retainer and is partially compensated respiratory acidosis now with worsening due to acute CHF. Chronic respiratory failure likely due to underlying AISHA/obesity hypoventilation syndrome plus/minus emphysema. Patient's oxygen saturation between 86 and 90% should be the goal. Continue CPAP at bedtime and avoid overly sedating medications. Patient will need a sleep study as soon as possible once the patient is discharged. 3. Systolic congestive heart failure exacerbation of right-sided heart failure and severe pulmonary hypertension. Echo showed an EF of 35 to 40%. Continue torsemide. Patient was started on Entresto. 4. Acute metabolic encephalopathy. Most likely in the morning due to AISHA and obesity hypoventilation syndrome during the night leading to increased CO2 retention. This is better now the patient is using CPAP overnight. 5. Partially compensated respiratory acidosis. Likely chronic, suspect AISHA/OHS as above. Continue to monitor. Most likely will need pulmonology referral outpatient. 6. COPD. CTA showed centrilobular emphysema. On Spiriva and prednisone. DVT Prophylaxis: Eliquis Disposition: Pending improvement in oxygenation, patient may need home oxygen VS,Fishbone, I+O VS, Fishbone, I+O Laboratory Tests 09/05/21 05:17 Vital Signs Date Time Temp Pulse Resp B/P (MAP) Pulse Ox O2 Delivery O2 Flow Rate FiO2 09/05/21 13:13 91 Nasal Cannula 4.0 09/05/21 12:00 96.7 79 18 104/58 (73) 08/31/21 07:48 50 I&O- Last 24 Hours up to 6 AM 09/05/21 06:00 Intake Total 860 ml Output Total 3050 ml Balance -2190 ml SCHUYLER HERNÁNDEZ DO Sep 05, 2021 15:19
[2021-09-05 16:00] VITALS: BP 95/55; O2SAT 91
[2021-09-05 20:00] VITALS: BP 104/56
[2021-09-06] VITALS (12 sets, daily range): BP systolic 103–148; BP diastolic 58–87; O2SAT 91
[2021-09-06 04:54] LABS: BASO # 0.1 10^3/uL (0.0-0.2); BASO % 0.4 % (0.0-1.0); EOS # 0.1 10^3/uL (0.0-0.5); HEMATOCRIT 51.4 % (42.0-52.0); HEMOGLOBIN 15.2 g/dl (13.5-17.5); LYMPH # 2.2 10^3/uL (1.5-5.0); LYMPH % 15.6 % (24.0-44.0); MEAN CORPUSCULAR HEMOGLOBIN 27.5 pg (27.0-33.0); MEAN CORPUSCULAR HGB CONC 29.6 g/dl (32.0-36.5); MEAN CORPUSCULAR VOLUME 92.9 fl (80.0-96.0); MONO # 1.3 10^3/uL (0.0-0.8); MONO % 9.3 % (2.0-8.0); NEUTROPHILS # 9.9 10^3/uL (1.5-8.5); NEUTROPHILS % 71.7 % (36.0-66.0); PLATELET COUNT, AUTOMATED 191 10^3/uL (150-450); RED BLOOD COUNT 5.53 10^6/uL (4.30-6.10); WHITE BLOOD COUNT 13.8 10^3/uL (4.0-10.0)
[2021-09-06 05:13] LABS: BLOOD UREA NITROGEN 39 MG/DL (7-18); CALCIUM LEVEL 8.5 MG/DL (8.8-10.2); CARBON DIOXIDE LEVEL 43 MEQ/L (21-32); CHLORIDE LEVEL 102 MEQ/L (98-107); CREATININE FOR GFR 0.96 MG/DL (0.70-1.30); GLOMERULAR FILTRATION RATE > 60.0 (>42); GLUCOSE, FASTING 104 MG/DL (70-100); POTASSIUM SERUM 4.6 MEQ/L (3.5-5.1); SODIUM LEVEL 145 MEQ/L (136-145)
[2021-09-06] MEDS: TIOTROPIUM INHALER/CAPSULE (SPIRIVA) INH SCH ×2 (08:45→09:17)
[2021-09-06] MEDS: TORSEMIDE 20 MG TAB PO SCH (09:17)
[2021-09-06] MEDS: DIGOXIN 0.25 MG TAB PO SCH (09:17)
[2021-09-06] MEDS: ENTRESTO 24-26MG TABLET (SACUBITRIL/VALSARTAN) PO SCH ×2 (09:17→20:43)
[2021-09-06] MEDS: predniSONE 20 MG TAB PO SCH (09:17)
[2021-09-06] MEDS: APIXABAN 5 MG TAB (ELIQUIS) PO SCH ×2 (09:17→20:43)
[2021-09-06] MEDS: bisoproloL fumarate 10 MG TAB PO SCH (09:18)
--- NOTE | 2021-09-06 15:40 | IPNPDOC ---
Text Note Date of Service The patient was seen on 09/06/21. NOTE Subjective: Patient is a 76-year-old male presented to emergency department for shortness of breath found to have atrial flutter with a 2-1 conduction. Patient is feeling better. Patient's medications have been changed by cardiology and patient's heart rate is better controlled. Patient is still hypoxic requiring 4 L of oxygen via nasal cannula. Patient denies any difficulty breathing. Patient does get winded when he walks around. Patient is otherwise doing well. Review of systems: General: Patient denies fevers HEENT: Patient denies headaches Cardiovascular: Patient denies chest pain Respiratory: Patient reports shortness of breath with exertion but denies valerie rtness of breath at rest GI: Patient denies abdominal pain, nausea, vomiting, diarrhea : Patient denies increased frequency or pain with urination Extremities: Patient denies swelling or pain in extremities Neurological: Patient denies numbness or tingling in legs Physical exam: Vitals: See below General: Alert and oriented male patient was sitting bedside chair and walked in. Patient had nasal cannula oxygen in place. Patient did not appear to be in any acute distress. HEENT: Normocephalic, atraumatic, moist mucous membranes. Neck: No lymphadenopathy or thyromegaly Cardiac: Regular rate and rhythm, no murmurs, normal S1, normal S2 Pulm: Bibasilar crackles with diminished breath sounds in the upper lung daniel Abd: Nondistended, nontender to palpation, normal bowel sounds Ext: No edema bilateral lower extremities Labs: See below Imaging: No new imaging is been performed Assessment/plan: 76-year-old male with past medical history of exposure to agent orange who reported the emergency department with complaints of shortness of breath the last 5 years which is worse in the last 2 weeks prior to admission. Patient admitted for CHF exacerbation with acute hypoxic and hypercarbic respiratory failure 1. Atrial flutter with RVR with 2 1 conduction. Cardiology saw the patient and change the patient from Coreg to bisoprolol. Patient's heart rate has been better controlled with this. Patient did have a run of a flutter last evening but this resolved without any further medical intervention after about 10 to 15 minutes. Patient is otherwise doing well and will continue with the bisoprolol and Entresto. 2. Acute on chronic hypoxic and hypercarbic respiratory failure. Patient appears to be a chronic CO2 retainer and now has a partially compensated respiratory acidosis that was worsened due to acute CHF. Patient likely has chronic respiratory failure due to underlying AISHA/obesity hypoventilation syndrome. CT did show emphysematous changes. Patient's oxygen saturation should be between 8086 to 90%. Continue CPAP at bed. Patient will most likely need to be sent home on oxygen. Patient 3. Systolic congestive heart failure with right-sided heart failure and severe pulmonary hypertension. Echocardiogram showed EF of 35 to 40%. Continue torsemide and Entresto. 4. Acute metabolic encephalopathy. Most likely due to AISHA as this is worse in the morning. Patient will need sleep study upon discharge. 5. Partially compensated respiratory acidosis. Likely chronic. Suspect AISHA/obesity hypoventilation syndrome as above. Continue to monitor. Most likely needs pulmonary referral as outpatient. 6. COPD. CTA showed centrilobular emphysema. On Spiriva and prednisone. DVT Prophylaxis: Eliquis Disposition: Pending improvement oxygenation. Most likely to be sent home on home oxygen. VS,Fishbone, I+O VS, Fishbone, I+O Laboratory Tests 09/06/21 04:17 Vital Signs Date Time Temp Pulse Resp B/P (MAP) Pulse Ox O2 Delivery O2 Flow Rate FiO2 09/06/21 12:00 97.7 62 15 138/68 (91) 92 Nasal Cannula 4.0 08/31/21 07:48 50 I&O- Last 24 Hours up to 6 AM 09/06/21 06:00 Intake Total 1110 ml Output Total 2850 ml Balance -1740 ml SCHUYLER HERNÁNDEZ DO Sep 06, 2021 15:40
[2021-09-07] VITALS: BP 130/62
[2021-09-07 04:00] VITALS: BP 132/60
[2021-09-07 08:00] VITALS: BP 98/54; O2SAT 93
[2021-09-07] MEDS: TIOTROPIUM INHALER/CAPSULE (SPIRIVA) INH SCH (08:45)
[2021-09-07] MEDS: ENTRESTO 24-26MG TABLET (SACUBITRIL/VALSARTAN) PO SCH ×2 (08:54→09:00)
[2021-09-07] MEDS: DIGOXIN 0.25 MG TAB PO SCH (08:54)
[2021-09-07] MEDS: TORSEMIDE 20 MG TAB PO SCH (08:54)
[2021-09-07] MEDS: predniSONE 20 MG TAB PO SCH (08:55)
[2021-09-07] MEDS: APIXABAN 5 MG TAB (ELIQUIS) PO SCH (08:55)
[2021-09-07 09:00] VITALS: BP 98/52
[2021-09-07] MEDS: bisoproloL fumarate 10 MG TAB PO SCH (09:00)
[2021-09-07] MEDS ORDERED: DIGO0.253 PO (09:08)
[2021-09-07] MEDS ORDERED: PRED10TA2 PO (09:08)
[2021-09-07] MEDS ORDERED: BISO10TA13 PO (09:08)
[2021-09-07] MEDS ORDERED: TIOT18INH INH (09:08)
[2021-09-07 10:00] VITALS: BP 98/52; O2SAT 86
--- NOTE | 2021-09-07 18:55 | DS.PDOC ---
Discharge Summary General Date of Admission Aug 28, 2021 at 17:45 Date of Discharge 09/07/2021 Attending Physician: SCHUYLER HERNÁNDEZ DO Specialist/Consultants Involve: John Cummings Specialist/Consultants Involve David Castellanos MD pulmonary Discharge Summary PROCEDURES PERFORMED DURING STAY: None. ADMITTING DIAGNOSES: 1. Hypoxic respiratory failure. 2. Respiratory acidosis with compensation 3. A flutter DISCHARGE DIAGNOSES: 1. Atrial flutter with RVR with a 2-1 conduction, rate controlled. 2. Acute on chronic hypoxic and hypercarbic respiratory failure 3. Systolic congestive heart failure with right-sided heart failure and severe pulmonary hypertension 4. Acute metabolic encephalopathy, resolved 5. Partially compensated respiratory acidosis, likely chronic 6. COPD COMPLICATIONS/CHIEF COMPLAINT: Acute Respiratory Failure With Hypoxia. HISTORY OF PRESENT ILLNESS: Patient is a 76-year-old male with past medical history of exposure to agent orange, otherwise no reported history presented the emergency department with complaints shortness of breath. He drove his scooter himself to the emergency department. He reports of the last 5 years he is been getting short of breath but does not seek medical attention due to taking care of his who reportedly has multiple myeloma. He attributed to exposure to agent orange. Over the last 2 weeks he has been feeling more short of breath and today it progressed to the point where he went to seek medical attention. He gets short of breath walking from one end of the house to the other which was not present 2 weeks ago. He denied paroxysmal nocturnal dyspnea. He reports he has been sleeping in a recliner and is unsure if laying flat will exacerbate his symptoms. He uses no pillows. At this junction, he denies headache, blurry vision, chest pain, abdominal pain, focal weakness, problems with urination or bowel movement. HOSPITAL COURSE: Patient was admitted for acute hypoxic and hypercarbic respiratory failure. Patient was also found to be in a flutter with rapid ventricular rate with a rate around 150. Patient was initially started on digoxin. Patient was seen by pulmonary as the patient required BiPAP however, he cannot tolerate the BiPAP. Patient was switched to Vapotherm. Patient's symptoms were most likely chronic CO2 retaining due to predominant driving factors of COPD and obesity hypoventilation syndrome. Patient was recommended to wear BiPAP in his sleep. Patient had multiple episodes of desaturations while he was sleeping and episodes of acute metabolic encephalopathy secondary to will start to be most likely CO2 retention due to sleep apnea. Patient attempted to wear the CPAP mask however, he said it was ill fitting and did not fit. Patient was seen by cardiology towards the end of his hospitalization and was started on bisoprolol, Eliquis, Entresto due to systolic congestive heart failure that was seen on echocardiogram with the patient's ejection fraction was 35 to 40%. Patient was also shown to have severe pulmonary hypertension and right-sided heart failure. Patient was diuresed and after these medications were adjusted by cardiology, the patient's heart rate remained in the normal range for the rest of his hospitalization. Patient continued to maintain oxygen saturations between 88 and 92% on 4 L and would drop anytime he was weaned down below 4 L. After 2 to 48 hours on 4 L with a normal heart rate, the decision was made to discharge the patient home on 4 L of oxygen. Patient was discharged home on 09/07/2021. Patient did not have prescription drug coverage with his insurance and stated he paid for his medications out of pocket and was willing to pay for Entresto, E liquis and bisoprolol with buenrostro for at least the time being. Plan was also made to attempt to get the patient and a an appointment with pulmonary as soon as possible in order to set him up with a sleep study as the patient has obstructive sleep apnea most likely driving some of his pulmonary hypertension. I did speak with pulmonary prior to discharging the patient to ensure of the best route to go and an appointment was set up. DISCHARGE MEDICATIONS: Please see below. ALLERGIES: Please see below. PHYSICAL EXAMINATION ON DISCHARGE: VITAL SIGNS: Please see below. General: Alert and oriented male patient who was sitting in bedside chair when I walked in. Patient had nasal cannula oxygen in place. Patient did not appear to be in any acute distress. HEENT: Normocephalic, atraumatic, moist mucous membranes. Neck: No lymphadenopathy or thyromegaly Cardiac: Regular rate and rhythm, no murmurs, normal S1, normal S2 Pulm: Diminished breath sounds bilaterally Abd: Nondistended, nontender to palpation, normal bowel sounds Ext: No edema bilateral lower extremities LABORATORY DATA: Please see below. IMAGING: Chest x-ray performed on 08/26/2021 is reported to show chronic changes with no definite acute infiltrate. CT angio of the chest performed on 08/26/2021 is reported to show moderate to severe paraseptal and centrilobular emphysematous changes. Subpleural interstitial infiltrates both lung bases with small cystic changes suggesting lower lobe interstitial lung disease. There is no edge dissection or aneurysm. Multiple mediastinal lymph nodes likely postinflammatory. There are no pulmonary emboli. There is a small amount of free intraperitoneal fluid present. There is bilateral adrenal hyperplasia Echocardiogram performed on 08/29/2021 was reported to show left ventricular ejection fraction 35 to 40%, moderately dilated left atrium with at least mildly elevated estimated mean left atrial pressures. Moderately dilated right heart chambers with right ventricular free wall hypokinesis and likely severe pulmonary hypertension. PROGNOSIS: Fair ACTIVITY: As tolerated. DIET: Cardiacdiet DISCHARGE PLAN: Discharge home with home health service and home oxygen DISPOSITION: Home Health Service. DISCHARGE INSTRUCTIONS: 1. Follow-up with primary care provider within 3 to 5 days of discharge. 2. Follow-up with pulmonary as scheduled in order to schedule a sleep study 3. Follow-up with cardiology within 1 to 2 weeks 4. Continue with home oxygen as instructed 5. Continue with all new medications that were prescribed 6. Return to the emergency department if symptoms worsen ITEMS TO FOLLOWUP ON ON OUTPATIENT: 1. Sleep study for sleep apnea. DISCHARGE CONDITION: Stable. TIME SPENT ON DISCHARGE: 40 minutes. Vital Signs/I&Os Vital Signs Date Time Temp Pulse Resp B/P (MAP) Pulse Ox O2 Delivery O2 Flow Rate FiO2 09/07/21 10:00 86 Nasal Cannula 4.0 09/07/21 10:00 98/52 (67) 09/07/21 09:00 96 09/07/21 08:00 97.5 18 I&O- Last 24 Hours up to 6 AM 09/07/21 06:00 Intake Total 1450 ml Output Total 1770 ml Balance -320 ml Microbiology Microbiology 08/28/21 Blood Culture - Final, Complete NO GROWTH AFTER 5 DAYS 08/28/21 Respiratory Virus Panel (PCR) ([facility]) - Final, Complete 08/28/21 Blood Culture - Final, Complete NO GROWTH AFTER 5 DAYS Discharge Medications Scheduled Apixaban (Eliquis) 5 Mg Tablet, 1 TAB PO BID Ascorbic Acid (Vitamin C) 500 Mg Capsule, 500 MG PO DAILY, (Reported) Bisoprolol Fumarate (Bisoprolol Fumarate) 10 Mg Tablet, 10 MG PO DAILY Digoxin (Digoxin) 250 Mcg Tablet, 0.25 MG PO DAILY Multivitamins (Thera M Plus Tablet) 1 Each Tablet, 1 TAB PO DAILY, (Reported) Prednisone (Prednisone) 10 Mg Tablet, 10 MG PO TAPER Take 4 tabs daily x 3 days, then 3 tabs daily x 3 days, then 2 tabs daily x 3 days, then 1 tab daily x 3 days and stop Sacubitril/Valsartan (Entresto 24 mg-26 mg Tablet) 1 Each Tablet, 1 TAB PO BID Tiotropium [place] Monohydrate (Spiriva) 18 Mcg Cap.w.dev, 1 INHALATION INH DAILY@08 Zinc Sulfate (Zinc Sulfate) 220 Mg Capsule, 220 MG PO DAILY, (Reported) Allergies Coded Allergies: No Known Allergies (Unverified , 08/28/21) SCHUYLER HERNÁNDEZ DO Sep 07, 2021 18:55
== END 2021-09-07 13:00 | disposition home health service (06) | DRG 291 ==
LOC: M ED 14:14 → M ED INP 17:45 → ENRESERV 19:01 → M PCU 20:54
PROVIDERS: ADMIT Internal Medicine; ATTEND Family Medicine
DX: I50.23 Acute on chronic systolic (congestive) heart failure (principal); J96.21 Acute and chronic respiratory failure with hypoxia; J96.22 Acute and chronic respiratory failure with hypercapnia; G93.41 Metabolic encephalopathy; I48.92 Unspecified atrial flutter; E66.2 Morbid (severe) obesity with alveolar hypoventilation; J43.9 Emphysema, unspecified; I27.20 Pulmonary hypertension, unspecified; Z79.899 Other long term (current) drug therapy; F17.200 Nicotine dependence, unspecified, uncomplicated; I27.81 Cor pulmonale (chronic)

== ENCOUNTER → 2021-10-04 | Outpatient (REF) | payer MEDICARE ==
[~2021-10-04] MED LIST: BISO10TA13 PO; DIGO0.253 PO; ELIQ5TAB PO; ENTR1TAB PO; PRED10TA2 PO; TIOT18INH INH; VITA500C24 PO; VITMTA PO; ZINC220CA PO
== END ==
LOC: M SFHCPLAZ 11:12
PROVIDERS: ATTEND Family Medicine
DX: I48.92 Unspecified atrial flutter (principal)

== ENCOUNTER → 2022-09-24 | Outpatient (CLI) | payer MEDICARE ==
[2022-09-24 17:11] LABS: HEMATOCRIT 41.3 % (42.0-52.0); HEMOGLOBIN 13.1 g/dl (13.5-17.5); MEAN CORPUSCULAR HEMOGLOBIN 30.8 pg (27.0-33.0); MEAN CORPUSCULAR HGB CONC 31.7 g/dl (32.0-36.5); MEAN CORPUSCULAR VOLUME 97.2 fl (80.0-96.0); PLATELET COUNT, AUTOMATED 272 10^3/uL (150-450); RED BLOOD COUNT 4.25 10^6/uL (4.30-6.10); WHITE BLOOD COUNT 10.7 10^3/uL (4.0-10.0)
[2022-09-24 17:46] LABS: ALBUMIN 3.2 GM/DL (3.2-5.2); BILIRUBIN,TOTAL 0.2 MG/DL (0.2-1.0); CALCIUM LEVEL 9.5 MG/DL (8.8-10.2); CREATININE FOR GFR 1.45 MG/DL (0.70-1.30); GLOMERULAR FILTRATION RATE 50.4 (>42); MAGNESIUM LEVEL 2.3 MG/DL (1.8-2.4); POTASSIUM SERUM 4.5 MEQ/L (3.5-5.1); TOTAL PROTEIN 7.9 GM/DL (6.4-8.2)
== END ==
LOC: M PLALAB 14:54
PROVIDERS: ATTEND Physician Assistant
DX: I50.32 Chronic diastolic (congestive) heart failure (principal); Z79.01 Long term (current) use of anticoagulants

== ENCOUNTER → 2023-01-01 | Outpatient (CLI) | payer MEDICARE, OTHER ==
[2023-01-01 17:28] LABS: BLOOD UREA NITROGEN 18 MG/DL (9-23); CALCIUM LEVEL 9.1 MG/DL (8.3-10.6); CARBON DIOXIDE LEVEL 30 MMOL/L (20-31); CHLORIDE LEVEL 104 MMOL/L (98-107); GLUCOSE, FASTING 194 MG/DL (74-106); POTASSIUM SERUM 4.8 MMOL/L (3.5-5.1); SODIUM LEVEL 138 MMOL/L (136-145)
[2023-01-01 20:28] LABS: CREATININE FOR GFR 1.05 MG/DL (0.70-1.30); GLOMERULAR FILTRATION RATE > 60.0 (>42)
== END ==
LOC: M PLALAB 13:47
PROVIDERS: ATTEND Physician Assistant
DX: I50.32 Chronic diastolic (congestive) heart failure (principal)

== ENCOUNTER → 2024-07-22 | Outpatient (CLI) | payer OTHER ==
[2024-07-22 10:19] LABS: BASO # 0.1 10^3/uL (0.0-0.2); BASO % 0.7 % (0.0-1.0); EOS # 0.6 10^3/uL (0.0-0.5); HEMOGLOBIN 15.7 g/dl (13.5-17.5); LYMPH # 2.9 10^3/uL (1.5-5.0); MEAN CORPUSCULAR VOLUME 96.6 fl (80.0-96.0); MONO # 1.2 10^3/uL (0.0-0.8); MONO % 9.3 % (2.0-8.0); NEUTROPHILS # 7.7 10^3/uL (1.5-8.5); NEUTROPHILS % 61.2 % (36.0-66.0); PLATELET COUNT, AUTOMATED 245 10^3/uL (150-450); RED BLOOD COUNT 5.07 10^6/uL (4.30-6.10); WHITE BLOOD COUNT 12.6 10^3/uL (4.0-10.0)
[2024-07-22 10:38] LABS: HEMOGLOBIN A1c 13.3 % (4.0-6.0)
[2024-07-22 10:44] LABS: ALBUMIN 3.3 G/DL (3.2-5.2); ALKALINE PHOSPHATASE 84 U/L (46-116); ALT/SGPT 28 U/L (7.0-40); AST/SGOT 18 U/L (<34); BILIRUBIN,TOTAL 0.4 MG/DL (0.3-1.2); BLOOD UREA NITROGEN 20 MG/DL (9-23); CALCIUM LEVEL 10.2 MG/DL (8.3-10.6); CARBON DIOXIDE LEVEL 34 MMOL/L (20-31); CHLORIDE LEVEL 101 MMOL/L (98-107); CREATININE FOR GFR 1.05 MG/DL (0.70-1.30); GLOMERULAR FILTRATION RATE > 60.0 (>42); GLUCOSE, FASTING 249 MG/DL (74-106); POTASSIUM SERUM 5.3 MMOL/L (3.5-5.1); SODIUM LEVEL 137 MMOL/L (136-145); TOTAL PROTEIN 7.9 G/DL (5.7-8.2)
== END ==
LOC: M PLALAB 08:34
PROVIDERS: ATTEND Student in an Organized Health Care Education/Training Program
DX: J44.9 Chronic obstructive pulmonary disease, unspecified (principal); E11.9 Type 2 diabetes mellitus without complications; I50.20 Unspecified systolic (congestive) heart failure

== ENCOUNTER → 2024-09-15 | Outpatient (CLI) | payer OTHER | LOC: M CARPUL 13:53 | PROVIDERS: ATTEND Student in an Organized Health Care Education/Training Program | DX: I50.20 Unspecified systolic (congestive) heart failure (principal); Z79.01 Long term (current) use of anticoagulants ==

== ENCOUNTER → 2025-01-05 | Outpatient (CLI) | payer MEDICARE ==
[2025-01-05 18:42] LABS: HEMOGLOBIN A1c 5.7 % (4.0-6.0)
== END ==
LOC: M PLALAB 15:46
PROVIDERS: ATTEND Student in an Organized Health Care Education/Training Program
DX: E11.9 Type 2 diabetes mellitus without complications (principal)